=== PATIENT | male | born 2000 | race Caucasian/White ===

== ENCOUNTER 2024-05-22 18:38 | Inpatient (IN) | payer MEDICAID ==
[~2024-05-22] VITALS: Ht 175.3 cm; Wt 72.6 kg
[2024-05-22 23:35] LABS: BASOPHILS % (AUTO) 0.2 % (0-1); EOSINOPHILS % (AUTO) 0 % (0-6); HEMATOCRIT 41.9 % (42.0-52.0); HEMOGLOBIN 14.2 g/dl (14.0-17.9); LYMPHOCYTES # (AUTO) 0.7 X10'3 (1.1-4.8); LYMPHOCYTES % (AUTO) 4.7 % (21-51); MEAN CORPUSCULAR VOLUME 85.2 FL (78-98); MEAN PLATELET VOLUME 7.4 FL (7.4-10.4); MONOCYTES # (AUTO) 0.7 X10'3 (0-0.9); MONOCYTES % (AUTO) 4.7 % (2-12); NEUTROPHILS # (AUTO) 13.9 X10'3 (1.8-7.7); NEUTROPHILS % (AUTO) 90.4 % (42-75); PLATELET COUNT 230 X10'3 (140-440); RED BLOOD COUNT 4.92 X10'6 (4.70-6.10); RED CELL DISTRIBUTION WIDTH 13.5 % (11.5-14.5); WHITE BLOOD COUNT 15.4 X10'3 (4.5-11.0)
[2024-05-22 23:41] LABS: ANION GAP 12 (8-16); BLOOD UREA NITROGEN 9 MG/DL (7-18); CALCIUM 9.3 MG/DL (8.5-10.1); CHLORIDE 104 MMOL/L (99-107); GLUCOSE 119 MG/DL (70-104); POTASSIUM 3.5 MMOL/L (3.5-5.1); SODIUM 140 MMOL/L (135-145); TOTAL CARBON DIOXIDE 23.8 MMOL/L (24-32); eCRCL 127 ML/MIN; eGFR > 90 ML/MIN
[2024-05-23] VITALS (10 sets, daily range): BP systolic 110–122; BP diastolic 57–70; PULSE 56–88; RESP 13–16; TEMP 97.3–99.5; O2SAT 92–98
[2024-05-23] MEDS ORDERED: potassium Cl 40MEQ/1/2NS 520ml 520 ML IV PRN (00:15)
[2024-05-23] MEDS ORDERED: magnesium sulf-water 4G/100mL 100 ML IV PRN (00:15)
[2024-05-23] MEDS ORDERED: potassium Cl 20 mEq SR tablet PO PRN ×2 (00:15)
[2024-05-23] MEDS ORDERED: magnesium hydroxide 30ml (MOM) UD suspension PO PRN (00:15)
[2024-05-23] MEDS ORDERED: magnesium Cl slow-release 64mg tablet PO PRN (00:15)
[2024-05-23] MEDS ORDERED: magnesium sulf-water 2g/50mL 50 ML IV PRN (00:15)
[2024-05-23] MEDS ORDERED: azithromycin/NS 500mg/250ml 250 ML IV SCH (00:20)
[2024-05-23] MEDS: normal saline 1000ml 1,000 ML IV SCH (02:20)
[2024-05-23 02:26] LABS: MAGNESIUM 2.3 MG/DL (1.5-2.4); POTASSIUM 4.1 MMOL/L (3.5-5.1)
[2024-05-23] MEDS: ondansetron/PF 4mg/2ml inj IV PRN (02:36)
[2024-05-23] MEDS: ketorolac trometh 30MG/ML vial 30 MG/ML VIAL IV PRN (03:08)
[2024-05-23] MEDS: K and/or MAG REPLACEMENT MC SCH (08:00)
[2024-05-23] MEDS: pantoprazole 40 MG vial IV SCH (08:25)
[2024-05-23] MEDS: CefTRIAXone/D5W-Rocephin 1gm 50 ML IV SCH (08:25)
[2024-05-23 08:33] LABS: BILIRUBIN,URINE MODERATE (Neg); CLARITY,URINE SLIGHTLY CLOUDY (Clear); COLOR,URINE YELLOW (Yellow); GLUCOSE, URINE NEGATIVE (Neg); KETONES,URINE 15 mg/dl (Neg); LEUKOCYTE ESTERASE ,URINE NEGATIVE (Neg); NITRITES, URINE NEGATIVE (Neg); OCCULT BLOOD,URINE MODERATE (Neg); PROTEIN,URINE 100 mg/dl (Neg); UROBILINOGEN,URINE 0.2 E.U/dL (0.2-1.0)
[2024-05-23 08:44] LABS: SQUAMOUS EPITHELIAL CELL,UR FEW /LPF (FEW); UA COLLECTION TYPE FOLEY CATH
[2024-05-23 08:45] LABS: COARSE GRANULAR CAST 0-3 /LPF (NEGATIVE); MUCUS STRANDS MODERATE /LPF (Neg)
[2024-05-23 08:47] LABS: BACTERIA,URINE 1+ /HPF (Neg); RBC,URINE TNTC /HPF (0-2); TRANSITIONAL EPI CELLS,URINE FEW /HPF; WBC,URINE 20-30 /HPF (0-4)
[2024-05-23] MEDS: FLU VACC TS2024-25(6MOS UP)/PF 45 MCG/0.5 ML SYRINGE IMVAC ONE (15:54)
[2024-05-23] MEDS: normal saline 1000ml 1,000 ML IV ONE (16:09)
[2024-05-23] MEDS: diatr meglu/diatrizoate 30ml oral sol.-(3 dose) bottle PO SCH (21:44)
[2024-05-24] VITALS (21 sets, daily range): BP systolic 104–126; BP diastolic 53–80; PULSE 47–124; RESP 14–20; TEMP 97.6–98.5; O2SAT 93–100
[2024-05-24 05:04] LABS: EOSINOPHILS # (AUTO) 0.2 X10'3 (0-0.9); HEMOGLOBIN 11.4 g/dl (14.0-17.9); MEAN PLATELET VOLUME 7.4 FL (7.4-10.4); NEUTROPHILS # (AUTO) 4.2 X10'3 (1.8-7.7)
[2024-05-24 05:07] LABS: BASOPHILS # (AUTO) 0.1 X10'3 (0-0.2); BASOPHILS % (AUTO) 0.8 % (0-1); EOSINOPHILS % (AUTO) 2.8 % (0-6); HEMATOCRIT 33.4 % (42.0-52.0); LYMPHOCYTES # (AUTO) 1.9 X10'3 (1.1-4.8); LYMPHOCYTES % (AUTO) 27.4 % (21-51); MEAN CORPUSCULAR HEMOGLOBIN 29.3 PG (27.0-31.0); MEAN CORPUSCULAR HGB CONC 34.1 g/dL (33.0-36.5); MEAN CORPUSCULAR VOLUME 85.7 FL (78-98); MONOCYTES # (AUTO) 0.6 X10'3 (0-0.9); MONOCYTES % (AUTO) 8.9 % (2-12); NEUTROPHILS % (AUTO) 60.1 % (42-75); PLATELET COUNT 159 X10'3 (140-440); RED CELL DISTRIBUTION WIDTH 13.6 % (11.5-14.5)
[2024-05-24 05:29] LABS: ALANINE AMINOTRANSFERASE 16 U/L (12-78); ALBUMIN 2.8 G/DL (3.4-5.0); ALKALINE PHOSPHATASE 35 IU/L (46-116); ANION GAP 7 (8-16); ASPARTATE AMINO TRANSFERASE 14 U/L (10-37); BILIRUBIN,TOTAL 0.5 MG/DL (0.1-1.0); BLOOD UREA NITROGEN 18 MG/DL (7-18); BUN/CREATININE RATIO 25.4 (10.0-20.0); CALCIUM 8.2 MG/DL (8.5-10.1); CHLORIDE 112 MMOL/L (99-107); CREATININE 0.71 MG/DL (0.60-1.10); GLUCOSE 75 MG/DL (70-104); MAGNESIUM 1.9 MG/DL (1.5-2.4); POTASSIUM 3.6 MMOL/L (3.5-5.1); SODIUM 144 MMOL/L (135-145); TOTAL CARBON DIOXIDE 25.5 MMOL/L (24-32); TOTAL PROTEIN 5.7 G/DL (6.4-8.2); eCRCL 160 ML/MIN; eGFR > 90 ML/MIN
[2024-05-24] MEDS: dextrose 50%-water 50ml dispensing syringe IV ONE (08:02)
[2024-05-24] MEDS ORDERED: dextrose 50%-water 50ml dispensing syringe IV PRN (08:15)
[2024-05-24] MEDS ORDERED: DEXTROSE 15 GM of carb/4 tabs (each vial/BOTTLE has 4 tablets) PO PRN (08:15)
[2024-05-24] MEDS ORDERED: glucagon, human recombinant 1mg kit SUBCUT PRN (08:15)
[2024-05-24] MEDS ORDERED: iohexol 300mg/ml 100ml inj. ONE (11:11)
[2024-05-24] MEDS: dextrose 50%-water 50ml dispensing syringe IV PRN (15:02)
[2024-05-24 15:31] LABS: INR 1.1 INR; PROTHROMBIN TIME 11.2 SECONDS (9.0-12.0)
[2024-05-24] MEDS ORDERED: ringers solution, lacted 1,000 ML IV SCH (18:00)
[2024-05-24] MEDS ORDERED: meperidine/PF 25mg/ml syringe IV PRN ×2 (18:00)
[2024-05-24] MEDS ORDERED: ondansetron/PF 4mg/2ml inj IV PRN (18:00)
[2024-05-24] MEDS ORDERED: morphine 2 MG/ML inj. syringe IV PRN (18:00)
[2024-05-24] MEDS ORDERED: proCHLORperazine 10 MG/2 ml inj IV PRN (18:00)
[2024-05-24] MEDS ORDERED: sevoflurane 250ml liquid IH ONE (18:04)
[2024-05-24] MEDS ORDERED: fentaNYL /PF 50mcg/ml 5ml ampule ONE (18:08)
[2024-05-24] MEDS ORDERED: propofol inj 20 ML IV ONE (18:08)
[2024-05-24] MEDS ORDERED: midazolam 1 mg/ML 2ml injection ONE (18:08)
[2024-05-24] MEDS ORDERED: rocuronium 10mg/ml inj IV ONE (18:08)
[2024-05-24] MEDS ORDERED: ceFOXitin 1000 MG inj ONE ×2 (18:50)
[2024-05-24] MEDS: BUPIVAcaine 2.5mg/ml inj 50ml vial (contains preservative) ONE ×2 (19:52→21:51)
[2024-05-24] MEDS ORDERED: sugammadex 200mg/2ml injection IV ONE (20:17)
[2024-05-24] MEDS ORDERED: meperidine/PF 25mg/ml syringe ONE (20:27)
[2024-05-24] MEDS ORDERED: acetaminophen 1,000mg/100ml IV 100 ML IV ONE (20:28)
[2024-05-24] MEDS: morphine 4 MG/ML inj SYRINge IV PRN (21:02)
[2024-05-24] MEDS: meperidine/PF 25mg/ml syringe IV PRN (21:14)
[2024-05-24] MEDS: BUPIVACAINE liposomal/PF 13.3 MG/ML vial IM ONE (21:53)
[2024-05-24] MEDS: HYDROmorphone inj. 0.5 MG/0.5 ML DISP.SYRIN IV PRN (22:25)
[2024-05-25] VITALS (11 sets, daily range): BP systolic 98–120; BP diastolic 56–69; PULSE 48–104; RESP 16–18; TEMP 98.1–99.5; O2SAT 93–97
[2024-05-25 05:14] LABS: BASOPHILS % (AUTO) 0.2 % (0-1); EOSINOPHILS % (AUTO) 0.1 % (0-6); HEMATOCRIT 41.2 % (42.0-52.0); HEMOGLOBIN 13.8 g/dl (14.0-17.9); LYMPHOCYTES # (AUTO) 0.8 X10'3 (1.1-4.8); LYMPHOCYTES % (AUTO) 5.5 % (21-51); MEAN CORPUSCULAR HEMOGLOBIN 28.9 PG (27.0-31.0); MEAN CORPUSCULAR HGB CONC 33.5 g/dL (33.0-36.5); MEAN CORPUSCULAR VOLUME 86.3 FL (78-98); MEAN PLATELET VOLUME 7.9 FL (7.4-10.4); MONOCYTES # (AUTO) 0.8 X10'3 (0-0.9); MONOCYTES % (AUTO) 5.4 % (2-12); NEUTROPHILS # (AUTO) 13.1 X10'3 (1.8-7.7); NEUTROPHILS % (AUTO) 88.8 % (42-75); PLATELET COUNT 192 X10'3 (140-440); RED BLOOD COUNT 4.77 X10'6 (4.70-6.10); RED CELL DISTRIBUTION WIDTH 13.3 % (11.5-14.5); WHITE BLOOD COUNT 14.8 X10'3 (4.5-11.0)
[2024-05-25 05:21] LABS: ALANINE AMINOTRANSFERASE 40 U/L (12-78); ALBUMIN 2.7 G/DL (3.4-5.0); ALBUMIN/GLOBULIN RATIO 0.9 (1.1-1.5); ALKALINE PHOSPHATASE 36 IU/L (46-116); ANION GAP 5 (8-16); ASPARTATE AMINO TRANSFERASE 51 U/L (10-37); BLOOD UREA NITROGEN 3 MG/DL (7-18); BUN/CREATININE RATIO 5.4 (10.0-20.0); CHLORIDE 106 MMOL/L (99-107); CREATININE 0.56 MG/DL (0.60-1.10); GLUCOSE 97 MG/DL (70-104); MAGNESIUM 1.7 MG/DL (1.5-2.4); POTASSIUM 3.8 MMOL/L (3.5-5.1); SODIUM 138 MMOL/L (135-145); TOTAL CARBON DIOXIDE 26.6 MMOL/L (24-32); TOTAL PROTEIN 5.7 G/DL (6.4-8.2); eCRCL 203 ML/MIN; eGFR > 90 ML/MIN
[2024-05-25] MEDS: Chloraseptic (Phenol) Spray 177ml MM PRN (09:36)
[2024-05-25] MEDS: HYDROmorphone 1 mg/ml syringe IV ONE (12:19)
[2024-05-25] MEDS: HYDROmorphone 1 mg/ml syringe IV PRN (15:21)
[2024-05-25] MEDS: mag hydrox/Alum hydrox/simeth 30ml oral suspension PO PRN (20:10)
[2024-05-26 04:51] LABS: BASOPHILS % (AUTO) 0.4 % (0-1); EOSINOPHILS # (AUTO) 0.2 X10'3 (0-0.9); EOSINOPHILS % (AUTO) 1.9 % (0-6); HEMATOCRIT 35.3 % (42.0-52.0); LYMPHOCYTES # (AUTO) 1.8 X10'3 (1.1-4.8); LYMPHOCYTES % (AUTO) 19.2 % (21-51); MEAN CORPUSCULAR HEMOGLOBIN 28.7 PG (27.0-31.0); MEAN CORPUSCULAR HGB CONC 33.9 g/dL (33.0-36.5); MEAN CORPUSCULAR VOLUME 84.5 FL (78-98); MEAN PLATELET VOLUME 7.2 FL (7.4-10.4); MONOCYTES # (AUTO) 0.9 X10'3 (0-0.9); MONOCYTES % (AUTO) 9.7 % (2-12); NEUTROPHILS # (AUTO) 6.5 X10'3 (1.8-7.7); NEUTROPHILS % (AUTO) 68.8 % (42-75); PLATELET COUNT 174 X10'3 (140-440); RED BLOOD COUNT 4.18 X10'6 (4.70-6.10); RED CELL DISTRIBUTION WIDTH 13.3 % (11.5-14.5); WHITE BLOOD COUNT 9.4 X10'3 (4.5-11.0)
[2024-05-26 05:07] LABS: ALANINE AMINOTRANSFERASE 40 U/L (12-78); ALBUMIN 2.3 G/DL (3.4-5.0); ALBUMIN/GLOBULIN RATIO 0.8 (1.1-1.5); ALKALINE PHOSPHATASE 34 IU/L (46-116); ANION GAP 7 (8-16); ASPARTATE AMINO TRANSFERASE 56 U/L (10-37); BILIRUBIN,TOTAL 0.8 MG/DL (0.1-1.0); BLOOD UREA NITROGEN 6 MG/DL (7-18); BUN/CREATININE RATIO 9.7 (10.0-20.0); CALCIUM 7.9 MG/DL (8.5-10.1); CHLORIDE 107 MMOL/L (99-107); CREATININE 0.62 MG/DL (0.60-1.10); GLUCOSE 81 MG/DL (70-104); MAGNESIUM 2.1 MG/DL (1.5-2.4); POTASSIUM 3.5 MMOL/L (3.5-5.1); SODIUM 140 MMOL/L (135-145); TOTAL CARBON DIOXIDE 26.2 MMOL/L (24-32); TOTAL PROTEIN 5.2 G/DL (6.4-8.2); eCRCL 184 ML/MIN; eGFR > 90 ML/MIN
[2024-05-26 05:36] LABS: HEPATITIS C VIRUS ANTIBODY Non Reactive (Non Reactive)
[2024-05-26 06:00] VITALS: BP 115/64; PULSE 87; RESP 16; TEMP 98.7; O2SAT 98
[2024-05-26 08:02] VITALS: RESP 16; O2SAT 96
[2024-05-26 10:00] VITALS: BP 121/72; PULSE 78; RESP 15; TEMP 97.7; O2SAT 92
[2024-05-26 18:00] VITALS: BP 105/53; PULSE 58; RESP 16; TEMP 97.3; O2SAT 99
[2024-05-26 20:00] VITALS: RESP 16; O2SAT 98
[2024-05-26] MEDS ORDERED: metoclopramide 5 mg/ml inj IV PRN (20:10)
[2024-05-26] MEDS: metoclopramide 5 mg/ml inj IV PRN (20:30)
[2024-05-26] MEDS: enoxaparin 40mg/0.4ml syringe SUBCUT SCH (20:32)
[2024-05-26 22:00] VITALS: BP 108/64; PULSE 71; RESP 16; TEMP 98.4; O2SAT 98
[2024-05-27 05:19] LABS: ALANINE AMINOTRANSFERASE 33 U/L (12-78); ALBUMIN 2.4 G/DL (3.4-5.0); ALBUMIN/GLOBULIN RATIO 0.7 (1.1-1.5); ALKALINE PHOSPHATASE 36 IU/L (46-116); ANION GAP 6 (8-16); ASPARTATE AMINO TRANSFERASE 47 U/L (10-37); BILIRUBIN,TOTAL 0.6 MG/DL (0.1-1.0); BLOOD UREA NITROGEN 4 MG/DL (7-18); BUN/CREATININE RATIO 6.5 (10.0-20.0); CALCIUM 8.1 MG/DL (8.5-10.1); CHLORIDE 105 MMOL/L (99-107); CREATININE 0.62 MG/DL (0.60-1.10); GLUCOSE 74 MG/DL (70-104); MAGNESIUM 1.8 MG/DL (1.5-2.4); POTASSIUM 3.4 MMOL/L (3.5-5.1); SODIUM 137 MMOL/L (135-145); TOTAL PROTEIN 5.9 G/DL (6.4-8.2); eCRCL 184 ML/MIN; eGFR > 90 ML/MIN
[2024-05-27 05:27] LABS: BASOPHILS % (AUTO) 0.4 % (0-1); EOSINOPHILS # (AUTO) 0.1 X10'3 (0-0.9); EOSINOPHILS % (AUTO) 1.1 % (0-6); HEMATOCRIT 37.3 % (42.0-52.0); HEMOGLOBIN 12.7 g/dl (14.0-17.9); LYMPHOCYTES # (AUTO) 1.2 X10'3 (1.1-4.8); LYMPHOCYTES % (AUTO) 11.8 % (21-51); MEAN CORPUSCULAR HEMOGLOBIN 28.9 PG (27.0-31.0); MEAN CORPUSCULAR HGB CONC 34.1 g/dL (33.0-36.5); MEAN CORPUSCULAR VOLUME 84.9 FL (78-98); MEAN PLATELET VOLUME 8.2 FL (7.4-10.4); MONOCYTES # (AUTO) 0.6 X10'3 (0-0.9); MONOCYTES % (AUTO) 6.6 % (2-12); NEUTROPHILS # (AUTO) 7.9 X10'3 (1.8-7.7); NEUTROPHILS % (AUTO) 80.1 % (42-75); PLATELET COUNT 200 X10'3 (140-440); RED BLOOD COUNT 4.39 X10'6 (4.70-6.10); RED CELL DISTRIBUTION WIDTH 13.1 % (11.5-14.5); WHITE BLOOD COUNT 9.8 X10'3 (4.5-11.0)
[2024-05-27 06:00] VITALS: BP 117/52; PULSE 87; RESP 18; TEMP 98.9; O2SAT 96
[2024-05-27 08:15] VITALS: RESP 16; O2SAT 94
[2024-05-27 10:00] VITALS: BP 111/64; PULSE 72; RESP 15; TEMP 98.7; O2SAT 97
[2024-05-27] MEDS ORDERED: ringers solution, lacted 1,000 ML IV SCH (11:15)
[2024-05-27] MEDS: dextrose 5%-lactated ringers 1,000 ML IV SCH (12:32)
[2024-05-27] MEDS: LORazepam 2 mg/ml vial IV ONE (14:03)
[2024-05-27 18:00] VITALS: BP 116/71; PULSE 93; RESP 16; TEMP 97.7; O2SAT 96
[2024-05-27] MEDS ORDERED: magnesium Cl slow-release 64mg tablet PO PRN (18:00)
[2024-05-27] MEDS ORDERED: potassium Cl 20 mEq SR tablet PO PRN ×2 (18:00)
[2024-05-27] MEDS ORDERED: magnesium sulf-water 4G/100mL 100 ML IV PRN (18:00)
[2024-05-27] MEDS ORDERED: magnesium sulf-water 2g/50mL 50 ML IV PRN (18:00)
[2024-05-27 20:00] VITALS: RESP 16; O2SAT 96
[2024-05-27] MEDS: K and/or MAG REPLACEMENT MC SCH (20:00)
[2024-05-27] MEDS: potassium Cl 40MEQ/1/2NS 520ml 520 ML IV PRN (20:29)
[2024-05-27 22:00] VITALS: BP 112/61; PULSE 70; RESP 18; TEMP 98.5; O2SAT 96
[2024-05-28] VITALS (9 sets, daily range): BP systolic 101–127; BP diastolic 58–71; PULSE 65–107; RESP 16–20; TEMP 97.6–98.4; O2SAT 95–100
[2024-05-28] MEDS: piperacillin/tazo 4.5gm/100ml 100 ML IV SCH (00:56)
[2024-05-28 06:40] LABS: ALANINE AMINOTRANSFERASE 27 U/L (12-78); ALBUMIN 2.5 G/DL (3.4-5.0); ALBUMIN/GLOBULIN RATIO 0.7 (1.1-1.5); ALKALINE PHOSPHATASE 32 IU/L (46-116); ANION GAP 8 (8-16); ASPARTATE AMINO TRANSFERASE 30 U/L (10-37); BILIRUBIN,TOTAL 0.6 MG/DL (0.1-1.0); BLOOD UREA NITROGEN 2 MG/DL (7-18); BUN/CREATININE RATIO 2.9 (10.0-20.0); CALCIUM 8.3 MG/DL (8.5-10.1); CHLORIDE 105 MMOL/L (99-107); GLUCOSE 124 MG/DL (70-104); POTASSIUM 3.6 MMOL/L (3.5-5.1); SODIUM 139 MMOL/L (135-145); TOTAL CARBON DIOXIDE 26.4 MMOL/L (24-32); TOTAL PROTEIN 5.9 G/DL (6.4-8.2); eCRCL 163 ML/MIN; eGFR > 90 ML/MIN
[2024-05-28 06:48] LABS: BASOPHILS % (AUTO) 0.5 % (0-1); EOSINOPHILS # (AUTO) 0.2 X10'3 (0-0.9); EOSINOPHILS % (AUTO) 2.9 % (0-6); HEMATOCRIT 37.9 % (42.0-52.0); LYMPHOCYTES % (AUTO) 11.3 % (21-51); MEAN CORPUSCULAR HEMOGLOBIN 28.7 PG (27.0-31.0); MEAN CORPUSCULAR HGB CONC 34.2 g/dL (33.0-36.5); MEAN CORPUSCULAR VOLUME 83.7 FL (78-98); MEAN PLATELET VOLUME 7.9 FL (7.4-10.4); MONOCYTES # (AUTO) 0.7 X10'3 (0-0.9); MONOCYTES % (AUTO) 7.8 % (2-12); NEUTROPHILS # (AUTO) 6.6 X10'3 (1.8-7.7); NEUTROPHILS % (AUTO) 77.5 % (42-75); PLATELET COUNT 240 X10'3 (140-440); RED BLOOD COUNT 4.53 X10'6 (4.70-6.10); RED CELL DISTRIBUTION WIDTH 13.2 % (11.5-14.5); WHITE BLOOD COUNT 8.5 X10'3 (4.5-11.0)
[2024-05-28] MEDS: metoclopramide 5 mg/ml inj IV SCH (07:55)
[2024-05-28] MEDS ORDERED: levoFLOXACIN-Levaquin 750MG/D5 150 ML IV SCH (08:00)
[2024-05-28 09:35] LABS: MAGNESIUM 1.9 MG/DL (1.5-2.4)
[2024-05-28] MEDS: LORazepam 2 mg/ml vial IV ONE (12:53)
[2024-05-28] MEDS: methylnaltrexone br 12mg/0.6ml inj***SubQ only SQ ONE (15:35)
[2024-05-29 06:56] VITALS: BP 112/63; PULSE 53; RESP 20; TEMP 98.5; O2SAT 97
[2024-05-29 10:00] VITALS: BP 111/64; PULSE 65; RESP 20; TEMP 98; O2SAT 97
[2024-05-29] MEDS: diatr meglu/diatrizoate 30ml oral sol.-(3 dose) bottle PO SCH (11:20)
[2024-05-29 14:38] VITALS: RESP 18
[2024-05-29 18:00] VITALS: BP 108/67; PULSE 49; RESP 20; TEMP 97.5; O2SAT 99
[2024-05-29 20:00] VITALS: RESP 20
[2024-05-29 22:00] VITALS: BP 112/55; PULSE 47; RESP 12; TEMP 97.3; O2SAT 96
[2024-05-30 06:00] VITALS: BP 95/56; PULSE 43; RESP 12; TEMP 97.4; O2SAT 97
[2024-05-30 10:00] VITALS: BP 105/57; PULSE 53; RESP 16; TEMP 98.5; O2SAT 98
[2024-05-30] MEDS ORDERED: sodium phosphate inj. 15 MMOL in dextrose 5%-water 250 ML IV PRN (15:55)
[2024-05-30] MEDS ORDERED: magnesium Cl slow-release 64mg tablet PO PRN (15:55)
[2024-05-30] MEDS ORDERED: potassium Cl 20 mEq SR tablet PO PRN ×2 (15:55)
[2024-05-30] MEDS ORDERED: Neutra Phos packet PO PRN (15:55)
[2024-05-30] MEDS ORDERED: sodium phosphate inj. 30 MMOL in dextrose 5%-water 250 ML IV PRN (15:55)
[2024-05-30] MEDS ORDERED: Dextrose 10%-water IV solution 1,000 ML IV PRN (15:55)
[2024-05-30] MEDS ORDERED: magnesium sulf-water 4G/100mL 100 ML IV PRN (15:55)
[2024-05-30] MEDS ORDERED: magnesium sulf-water 2g/50mL 50 ML IV PRN (15:55)
[2024-05-30 17:17] LABS: ALANINE AMINOTRANSFERASE 106 U/L (12-78); ALBUMIN 2.5 G/DL (3.4-5.0); ALBUMIN/GLOBULIN RATIO 0.8 (1.1-1.5); ALKALINE PHOSPHATASE 39 IU/L (46-116); ANION GAP 3 (8-16); ASPARTATE AMINO TRANSFERASE 93 U/L (10-37); BILIRUBIN,TOTAL 0.7 MG/DL (0.1-1.0); BLOOD UREA NITROGEN 3 MG/DL (7-18); BUN/CREATININE RATIO 5.2 (10.0-20.0); CALCIUM 8.5 MG/DL (8.5-10.1); CHLORIDE 106 MMOL/L (99-107); CREATININE 0.58 MG/DL (0.60-1.10); GLUCOSE 105 MG/DL (70-104); PHOSPHORUS 3.2 MG/DL (2.3-4.5); SODIUM 141 MMOL/L (135-145); TOTAL CARBON DIOXIDE 32.4 MMOL/L (24-32); TOTAL PROTEIN 5.5 G/DL (6.4-8.2); TRIGLYCERIDES 64 MG/DL (20-135); eCRCL 196 ML/MIN; eGFR > 90 ML/MIN
[2024-05-30 17:27] LABS: POTASSIUM 2.7 MMOL/L (3.5-5.1)
[2024-05-30 18:00] VITALS: BP 113/70; PULSE 65; RESP 16; TEMP 97; O2SAT 100
[2024-05-30 20:00] VITALS: RESP 18
[2024-05-30] MEDS: K and/or MAG REPLACEMENT MC SCH (20:00)
[2024-05-30] MEDS: fat emulsion 20% inj. 100 ML IV SCH (20:55)
[2024-05-30] MEDS: MVI, adult No.4 with vit. K 10 ML in dextrose 5% water 500ml 500 ML IV SCH (20:55)
[2024-05-30] MEDS: ZINC/COPPER/MANGANESE/SELENIUM 1 ML, chromic chloride inj. 10 MCG in AA 5%/CALCIUM/LYTE... IV SCH (20:56)
[2024-05-30 22:00] VITALS: BP 114/62; PULSE 49; RESP 12; TEMP 97.5; O2SAT 96
[2024-05-30] MEDS: potassium Cl 40MEQ/1/2NS 520ml 520 ML IV PRN (22:35)
[2024-05-30] MEDS: normal saline 1000ml 1,000 ML IV SCH (22:46)
[2024-05-31] VITALS (7 sets, daily range): BP systolic 85–103; BP diastolic 52–60; PULSE 58–74; RESP 14–18; TEMP 98–98.5; O2SAT 94–99
[2024-05-31 11:05] LABS: ALANINE AMINOTRANSFERASE 137 U/L (12-78); ALBUMIN 2.5 G/DL (3.4-5.0); ALBUMIN/GLOBULIN RATIO 0.7 (1.1-1.5); ALKALINE PHOSPHATASE 47 IU/L (46-116); ANION GAP 4 (8-16); ASPARTATE AMINO TRANSFERASE 106 U/L (10-37); BILIRUBIN,TOTAL 0.7 MG/DL (0.1-1.0); BLOOD UREA NITROGEN 4 MG/DL (7-18); BUN/CREATININE RATIO 6.8 (10.0-20.0); CALCIUM 8.3 MG/DL (8.5-10.1); CHLORIDE 107 MMOL/L (99-107); CREATININE 0.59 MG/DL (0.60-1.10); GLUCOSE 130 MG/DL (70-104); MAGNESIUM 2.2 MG/DL (1.5-2.4); SODIUM 139 MMOL/L (135-145); TOTAL PROTEIN 5.9 G/DL (6.4-8.2); eCRCL 193 ML/MIN; eGFR > 90 ML/MIN
[2024-06-01 06:00] VITALS: BP 106/66; PULSE 100; RESP 14; TEMP 98.4; O2SAT 96
[2024-06-01 09:26] LABS: ALANINE AMINOTRANSFERASE 213 U/L (12-78); ALBUMIN 2.8 G/DL (3.4-5.0); ALBUMIN/GLOBULIN RATIO 0.7 (1.1-1.5); ALKALINE PHOSPHATASE 53 IU/L (46-116); ANION GAP 8 (8-16); ASPARTATE AMINO TRANSFERASE 146 U/L (10-37); BILIRUBIN,TOTAL 0.9 MG/DL (0.1-1.0); BLOOD UREA NITROGEN 10 MG/DL (7-18); BUN/CREATININE RATIO 16.9 (10.0-20.0); CALCIUM 8.6 MG/DL (8.5-10.1); CHLORIDE 105 MMOL/L (99-107); CREATININE 0.59 MG/DL (0.60-1.10); GLUCOSE 94 MG/DL (70-104); MAGNESIUM 2.3 MG/DL (1.5-2.4); PHOSPHORUS 3.6 MG/DL (2.3-4.5); PREALBUMIN 21.6 MG/DL (19-36); SODIUM 138 MMOL/L (135-145); TOTAL CARBON DIOXIDE 25.4 MMOL/L (24-32); TRIGLYCERIDES 53 MG/DL (20-135); eCRCL 193 ML/MIN; eGFR > 90 ML/MIN
[2024-06-01 10:00] VITALS: BP 110/64; PULSE 88; RESP 18; TEMP 98.5; O2SAT 96
[2024-06-01 18:00] VITALS: BP 105/62; PULSE 89; RESP 16; TEMP 97.1; O2SAT 95
[2024-06-01 20:00] VITALS: RESP 16; O2SAT 95
[2024-06-01 22:00] VITALS: BP 106/65; PULSE 60; RESP 20; TEMP 98.7; O2SAT 95
[2024-06-02 06:00] VITALS: BP 110/65; PULSE 78; RESP 19; TEMP 98.3; O2SAT 96
[2024-06-02 08:10] VITALS: RESP 16
[2024-06-02 10:00] VITALS: BP 104/64; PULSE 75; RESP 14; TEMP 98.1; O2SAT 96
[2024-06-02] MEDS: metoclopramide 5 mg/ml inj IV ONE (10:54)
[2024-06-02] MEDS: methylnaltrexone br 12mg/0.6ml inj***SubQ only SQ SCH (10:54)
[2024-06-02 18:00] VITALS: BP 97/52; PULSE 82; RESP 15; TEMP 98.3; O2SAT 97
[2024-06-02 20:00] VITALS: RESP 15; O2SAT 97
[2024-06-02 22:00] VITALS: BP 106/66; PULSE 74; RESP 15; TEMP 98.2; O2SAT 97
[2024-06-03 06:00] VITALS: BP 105/61; PULSE 78; RESP 18; TEMP 98.1; O2SAT 96
[2024-06-03 07:30] VITALS: RESP 16
[2024-06-03 10:00] VITALS: BP 102/70; PULSE 83; RESP 15; TEMP 98.7; O2SAT 97
[2024-06-03] MEDS ORDERED: metoclopramide 5 mg/ml inj IV PRN (15:05)
[2024-06-03] MEDS: metoclopramide 5 mg/ml inj IV SCH (15:43)
[2024-06-03 18:00] VITALS: BP 110/74; PULSE 85; RESP 20; TEMP 97.8; O2SAT 98
[2024-06-03 20:00] VITALS: RESP 20; O2SAT 98
[2024-06-03 22:00] VITALS: BP 108/70; PULSE 65; RESP 16; TEMP 97.5; O2SAT 96
[2024-06-04 06:00] VITALS: BP 104/67; PULSE 79; RESP 20; TEMP 97.4; O2SAT 97
[2024-06-04 08:00] VITALS: RESP 16
[2024-06-04 09:29] LABS: ALANINE AMINOTRANSFERASE 212 U/L (12-78); ALBUMIN/GLOBULIN RATIO 0.7 (1.1-1.5); ALKALINE PHOSPHATASE 84 IU/L (46-116); ANION GAP 6 (8-16); ASPARTATE AMINO TRANSFERASE 79 U/L (10-37); BILIRUBIN,TOTAL 0.6 MG/DL (0.1-1.0); BLOOD UREA NITROGEN 13 MG/DL (7-18); BUN/CREATININE RATIO 19.7 (10.0-20.0); CALCIUM 8.9 MG/DL (8.5-10.1); CHLORIDE 101 MMOL/L (99-107); CREATININE 0.66 MG/DL (0.60-1.10); GLUCOSE 92 MG/DL (70-104); MAGNESIUM 2.3 MG/DL (1.5-2.4); PHOSPHORUS 3.6 MG/DL (2.3-4.5); POTASSIUM 4.1 MMOL/L (3.5-5.1); SODIUM 135 MMOL/L (135-145); TOTAL CARBON DIOXIDE 28.1 MMOL/L (24-32); TOTAL PROTEIN 7.2 G/DL (6.4-8.2); eCRCL 173 ML/MIN; eGFR > 90 ML/MIN
[2024-06-04 10:00] VITALS: BP 110/73; PULSE 59; RESP 16; TEMP 98.8; O2SAT 98
[2024-06-04 18:00] VITALS: BP 109/59; PULSE 66; RESP 15; TEMP 98.2; O2SAT 97
[2024-06-04 20:00] VITALS: RESP 16; O2SAT 97
[2024-06-04 22:00] VITALS: BP 97/45; PULSE 69; RESP 16; TEMP 97.8; O2SAT 96
[2024-06-05 06:55] LABS: ALANINE AMINOTRANSFERASE 171 U/L (12-78); ALBUMIN 2.8 G/DL (3.4-5.0); ALBUMIN/GLOBULIN RATIO 0.7 (1.1-1.5); ALKALINE PHOSPHATASE 77 IU/L (46-116); ANION GAP 5 (8-16); ASPARTATE AMINO TRANSFERASE 55 U/L (10-37); BILIRUBIN,TOTAL 0.5 MG/DL (0.1-1.0); BLOOD UREA NITROGEN 13 MG/DL (7-18); BUN/CREATININE RATIO 19.7 (10.0-20.0); CALCIUM 8.6 MG/DL (8.5-10.1); CHLORIDE 102 MMOL/L (99-107); CREATININE 0.66 MG/DL (0.60-1.10); GLUCOSE 103 MG/DL (70-104); MAGNESIUM 2.3 MG/DL (1.5-2.4); PHOSPHORUS 3.8 MG/DL (2.3-4.5); POTASSIUM 4.1 MMOL/L (3.5-5.1); PREALBUMIN 24.4 MG/DL (19-36); SODIUM 136 MMOL/L (135-145); TOTAL CARBON DIOXIDE 28.6 MMOL/L (24-32); TOTAL PROTEIN 6.8 G/DL (6.4-8.2); TRIGLYCERIDES 69 MG/DL (20-135); eCRCL 173 ML/MIN; eGFR > 90 ML/MIN
[2024-06-05 07:13] VITALS: BP 94/56; PULSE 68; RESP 18; TEMP 98.2; O2SAT 98
[2024-06-05 08:00] VITALS: RESP 16
[2024-06-05 10:06] VITALS: RESP 18; O2SAT 98
[2024-06-05 17:15] VITALS: BP 93/60; PULSE 73; TEMP 98.4; O2SAT 97
[2024-06-05 20:00] VITALS: BP 102/61; PULSE 85; RESP 16; RESP 18; TEMP 98.9; O2SAT 97; O2SAT 99
[2024-06-05] MEDS ORDERED: magnesium hydroxide 30ml (MOM) UD suspension PO SCH (20:00)
[2024-06-05] MEDS: magnesium hydroxide 30ml (MOM) UD suspension PO SCH (20:23)
[2024-06-06 00:46] VITALS: BP 97/48; PULSE 47; RESP 16; TEMP 97.6; O2SAT 97
[2024-06-06 03:48] LABS: UREA NITROGEN 24HR,URINE 15.3 GM/24HR (7-20)
[2024-06-06 06:34] VITALS: BP 93/55; PULSE 73; RESP 16; TEMP 97.1; O2SAT 95
[2024-06-06 08:00] VITALS: RESP 16; O2SAT 95
[2024-06-06 10:27] LABS: BASOPHILS # (AUTO) 0.1 X10'3 (0-0.2); BASOPHILS % (AUTO) 1.5 % (0-1); EOSINOPHILS # (AUTO) 0.4 X10'3 (0-0.9); EOSINOPHILS % (AUTO) 5.4 % (0-6); HEMATOCRIT 38.4 % (42.0-52.0); HEMOGLOBIN 12.8 g/dl (14.0-17.9); LYMPHOCYTES # (AUTO) 1.8 X10'3 (1.1-4.8); LYMPHOCYTES % (AUTO) 26.2 % (21-51); MEAN CORPUSCULAR HEMOGLOBIN 28.5 PG (27.0-31.0); MEAN CORPUSCULAR HGB CONC 33.4 g/dL (33.0-36.5); MEAN CORPUSCULAR VOLUME 85.5 FL (78-98); MEAN PLATELET VOLUME 7.4 FL (7.4-10.4); MONOCYTES # (AUTO) 0.7 X10'3 (0-0.9); MONOCYTES % (AUTO) 10.9 % (2-12); NEUTROPHILS # (AUTO) 3.8 X10'3 (1.8-7.7); PLATELET COUNT 254 X10'3 (140-440); RED BLOOD COUNT 4.49 X10'6 (4.70-6.10); RED CELL DISTRIBUTION WIDTH 13.1 % (11.5-14.5); WHITE BLOOD COUNT 6.8 X10'3 (4.5-11.0)
[2024-06-06 11:30] VITALS: BP 100/62; PULSE 78; RESP 16; TEMP 98.3; O2SAT 96
[2024-06-06] MEDS: lactose-reduced food (Ensure Enlive) - 237ml bottle PO SCH (13:00)
[2024-06-06 20:00] VITALS: BP 93/56; PULSE 73; RESP 16; TEMP 98.2; O2SAT 97
[2024-06-06 20:30] VITALS: RESP 16; O2SAT 97
[2024-06-07] VITALS (7 sets, daily range): BP systolic 92–109; BP diastolic 47–68; PULSE 95–107; RESP 16–18; TEMP 98.2–99.4; O2SAT 95–98
[2024-06-07 10:51] LABS: BASOPHILS # (AUTO) 0.1 X10'3 (0-0.2); BASOPHILS % (AUTO) 0.5 % (0-1); EOSINOPHILS # (AUTO) 0.2 X10'3 (0-0.9); HEMATOCRIT 37.9 % (42.0-52.0); HEMOGLOBIN 12.6 g/dl (14.0-17.9); LYMPHOCYTES # (AUTO) 1.2 X10'3 (1.1-4.8); LYMPHOCYTES % (AUTO) 7.4 % (21-51); MEAN CORPUSCULAR HEMOGLOBIN 28.1 PG (27.0-31.0); MEAN CORPUSCULAR HGB CONC 33.2 g/dL (33.0-36.5); MEAN CORPUSCULAR VOLUME 84.6 FL (78-98); MEAN PLATELET VOLUME 7.3 FL (7.4-10.4); MONOCYTES # (AUTO) 1.5 X10'3 (0-0.9); NEUTROPHILS # (AUTO) 13.7 X10'3 (1.8-7.7); NEUTROPHILS % (AUTO) 82.1 % (42-75); PLATELET COUNT 245 X10'3 (140-440); RED BLOOD COUNT 4.48 X10'6 (4.70-6.10); RED CELL DISTRIBUTION WIDTH 13.1 % (11.5-14.5); WHITE BLOOD COUNT 16.6 X10'3 (4.5-11.0)
[2024-06-07 11:04] LABS: ALANINE AMINOTRANSFERASE 89 U/L (12-78); ALBUMIN 2.8 G/DL (3.4-5.0); ALBUMIN/GLOBULIN RATIO 0.7 (1.1-1.5); ALKALINE PHOSPHATASE 73 IU/L (46-116); ANION GAP 5 (8-16); ASPARTATE AMINO TRANSFERASE 29 U/L (10-37); BILIRUBIN,TOTAL 0.6 MG/DL (0.1-1.0); BLOOD UREA NITROGEN 9 MG/DL (7-18); CALCIUM 8.4 MG/DL (8.5-10.1); CHLORIDE 100 MMOL/L (99-107); CREATININE 0.82 MG/DL (0.60-1.10); GLUCOSE 121 MG/DL (70-104); POTASSIUM 3.7 MMOL/L (3.5-5.1); SODIUM 134 MMOL/L (135-145); TOTAL CARBON DIOXIDE 28.9 MMOL/L (24-32); TOTAL PROTEIN 6.6 G/DL (6.4-8.2); eCRCL 139 ML/MIN; eGFR > 90 ML/MIN
[2024-06-08 04:16] LABS: BASOPHILS # (AUTO) 0.1 X10'3 (0-0.2); BASOPHILS % (AUTO) 0.3 % (0-1); EOSINOPHILS # (AUTO) 0.1 X10'3 (0-0.9); EOSINOPHILS % (AUTO) 0.9 % (0-6); HEMATOCRIT 36.4 % (42.0-52.0); HEMOGLOBIN 12.1 g/dl (14.0-17.9); LYMPHOCYTES # (AUTO) 1.9 X10'3 (1.1-4.8); LYMPHOCYTES % (AUTO) 11.8 % (21-51); MEAN CORPUSCULAR HEMOGLOBIN 28.4 PG (27.0-31.0); MEAN CORPUSCULAR HGB CONC 33.3 g/dL (33.0-36.5); MEAN CORPUSCULAR VOLUME 85.2 FL (78-98); MEAN PLATELET VOLUME 7.7 FL (7.4-10.4); MONOCYTES # (AUTO) 1.9 X10'3 (0-0.9); MONOCYTES % (AUTO) 12.1 % (2-12); NEUTROPHILS # (AUTO) 11.9 X10'3 (1.8-7.7); NEUTROPHILS % (AUTO) 74.9 % (42-75); PLATELET COUNT 231 X10'3 (140-440); RED BLOOD COUNT 4.27 X10'6 (4.70-6.10); RED CELL DISTRIBUTION WIDTH 13.1 % (11.5-14.5); WHITE BLOOD COUNT 15.9 X10'3 (4.5-11.0)
[2024-06-08 04:29] LABS: ALANINE AMINOTRANSFERASE 83 U/L (12-78); ALBUMIN 2.7 G/DL (3.4-5.0); ALBUMIN/GLOBULIN RATIO 0.7 (1.1-1.5); ALKALINE PHOSPHATASE 82 IU/L (46-116); ANION GAP 4 (8-16); ASPARTATE AMINO TRANSFERASE 37 U/L (10-37); BILIRUBIN,TOTAL 0.4 MG/DL (0.1-1.0); BLOOD UREA NITROGEN 11 MG/DL (7-18); BUN/CREATININE RATIO 12.4 (10.0-20.0); CALCIUM 8.2 MG/DL (8.5-10.1); CHLORIDE 99 MMOL/L (99-107); CREATININE 0.89 MG/DL (0.60-1.10); GLUCOSE 103 MG/DL (70-104); MAGNESIUM 1.9 MG/DL (1.5-2.4); PHOSPHORUS 3.9 MG/DL (2.3-4.5); PREALBUMIN 20.5 MG/DL (19-36); SODIUM 134 MMOL/L (135-145); TOTAL CARBON DIOXIDE 30.6 MMOL/L (24-32); TOTAL PROTEIN 6.8 G/DL (6.4-8.2); TRIGLYCERIDES 64 MG/DL (20-135); eCRCL 128 ML/MIN; eGFR > 90 ML/MIN
[2024-06-08 06:00] VITALS: BP 104/58; PULSE 89; RESP 15; TEMP 98.3; O2SAT 96
[2024-06-08 08:25] VITALS: RESP 16
[2024-06-08 09:13] LABS: BILIRUBIN,URINE NEGATIVE (Neg); CLARITY,URINE SLIGHTLY CLOUDY (Clear); COLOR,URINE YELLOW (Yellow); GLUCOSE, URINE NEGATIVE (Neg); KETONES,URINE NEGATIVE (Neg); LEUKOCYTE ESTERASE ,URINE NEGATIVE (Neg); NITRITES, URINE NEGATIVE (Neg); OCCULT BLOOD,URINE NEGATIVE (Neg); PROTEIN,URINE NEGATIVE (Neg); UROBILINOGEN,URINE 0.2 E.U/dL (0.2-1.0)
[2024-06-08 09:16] LABS: UA COLLECTION TYPE VOIDED
[2024-06-08 09:25] LABS: BACTERIA,URINE NONE SEEN /HPF (Neg); RBC,URINE NONE SEEN /HPF (0-2); SQUAMOUS EPITHELIAL CELL,UR NONE SEEN /LPF (FEW); WBC,URINE 0-4 /HPF (0-4)
[2024-06-08 10:00] VITALS: BP 90/43; PULSE 91; RESP 17; TEMP 97.5; O2SAT 98
[2024-06-08] MEDS ORDERED: POLY17PO10 PO (10:36)
[2024-06-08 15:26] LABS: BASOPHILS # (AUTO) 0.1 X10'3 (0-0.2); BASOPHILS % (AUTO) 0.8 % (0-1); EOSINOPHILS # (AUTO) 0.2 X10'3 (0-0.9); EOSINOPHILS % (AUTO) 1.6 % (0-6); HEMATOCRIT 33.4 % (42.0-52.0); HEMOGLOBIN 11.2 g/dl (14.0-17.9); LYMPHOCYTES # (AUTO) 1.8 X10'3 (1.1-4.8); LYMPHOCYTES % (AUTO) 12.9 % (21-51); MEAN CORPUSCULAR HEMOGLOBIN 28.4 PG (27.0-31.0); MEAN CORPUSCULAR HGB CONC 33.6 g/dL (33.0-36.5); MEAN CORPUSCULAR VOLUME 84.4 FL (78-98); MEAN PLATELET VOLUME 7.2 FL (7.4-10.4); MONOCYTES # (AUTO) 1.6 X10'3 (0-0.9); MONOCYTES % (AUTO) 11.9 % (2-12); NEUTROPHILS # (AUTO) 10.1 X10'3 (1.8-7.7); NEUTROPHILS % (AUTO) 72.8 % (42-75); PLATELET COUNT 227 X10'3 (140-440); RED BLOOD COUNT 3.96 X10'6 (4.70-6.10); RED CELL DISTRIBUTION WIDTH 13.1 % (11.5-14.5); WHITE BLOOD COUNT 13.9 X10'3 (4.5-11.0)
[2024-06-08 18:00] VITALS: BP 91/52; PULSE 99; RESP 17; TEMP 97.9; O2SAT 96
[2024-06-08 20:00] VITALS: RESP 17; O2SAT 96
[2024-06-08] MEDS: diatr meglu/diatrizoate 30ml oral sol.-(3 dose) bottle PO SCH (20:54)
[2024-06-08 22:00] VITALS: BP 97/61; PULSE 89; RESP 18; TEMP 98.3; O2SAT 96
[2024-06-09 06:17] LABS: BASOPHILS # (AUTO) 0.1 X10'3 (0-0.2); BASOPHILS % (AUTO) 0.6 % (0-1); EOSINOPHILS # (AUTO) 0.2 X10'3 (0-0.9); EOSINOPHILS % (AUTO) 1.6 % (0-6); HEMATOCRIT 33.4 % (42.0-52.0); HEMOGLOBIN 11.1 g/dl (14.0-17.9); LYMPHOCYTES # (AUTO) 1.7 X10'3 (1.1-4.8); LYMPHOCYTES % (AUTO) 12.6 % (21-51); MEAN CORPUSCULAR HEMOGLOBIN 28.2 PG (27.0-31.0); MEAN CORPUSCULAR HGB CONC 33.3 g/dL (33.0-36.5); MEAN CORPUSCULAR VOLUME 84.6 FL (78-98); MEAN PLATELET VOLUME 7.6 FL (7.4-10.4); MONOCYTES # (AUTO) 1.6 X10'3 (0-0.9); MONOCYTES % (AUTO) 11.7 % (2-12); NEUTROPHILS # (AUTO) 9.7 X10'3 (1.8-7.7); NEUTROPHILS % (AUTO) 73.5 % (42-75); PLATELET COUNT 219 X10'3 (140-440); RED BLOOD COUNT 3.95 X10'6 (4.70-6.10); RED CELL DISTRIBUTION WIDTH 13.3 % (11.5-14.5); WHITE BLOOD COUNT 13.2 X10'3 (4.5-11.0)
[2024-06-09 06:54] VITALS: BP 95/57; PULSE 86; RESP 20; TEMP 99.5; O2SAT 97
[2024-06-09 07:30] VITALS: RESP 20; O2SAT 97
[2024-06-09 11:00] VITALS: BP 107/57; PULSE 83; RESP 18; TEMP 99; O2SAT 95
[2024-06-09] MEDS ORDERED: iohexol 300mg/ml 100ml inj. ONE (11:18)
[2024-06-09] MEDS: piperacillin/tazo 4.5gm/100ml 100 ML IV SCH (16:35)
[2024-06-09 18:00] VITALS: BP 90/49; PULSE 85; RESP 18; TEMP 98.8; O2SAT 95
[2024-06-09 20:00] VITALS: RESP 18; O2SAT 97
[2024-06-09 22:00] VITALS: BP 98/56; PULSE 89; RESP 16; TEMP 98.6; O2SAT 98
[2024-06-10 05:58] LABS: BASOPHILS # (AUTO) 0.1 X10'3 (0-0.2); BASOPHILS % (AUTO) 0.8 % (0-1); EOSINOPHILS # (AUTO) 0.3 X10'3 (0-0.9); HEMATOCRIT 31.5 % (42.0-52.0); HEMOGLOBIN 10.8 g/dl (14.0-17.9); LYMPHOCYTES # (AUTO) 1.5 X10'3 (1.1-4.8); LYMPHOCYTES % (AUTO) 10.9 % (21-51); MEAN CORPUSCULAR HEMOGLOBIN 28.9 PG (27.0-31.0); MEAN CORPUSCULAR HGB CONC 34.1 g/dL (33.0-36.5); MEAN CORPUSCULAR VOLUME 84.6 FL (78-98); MEAN PLATELET VOLUME 8.3 FL (7.4-10.4); MONOCYTES # (AUTO) 1.7 X10'3 (0-0.9); MONOCYTES % (AUTO) 12.9 % (2-12); NEUTROPHILS # (AUTO) 9.8 X10'3 (1.8-7.7); NEUTROPHILS % (AUTO) 73.4 % (42-75); PLATELET COUNT 230 X10'3 (140-440); RED BLOOD COUNT 3.72 X10'6 (4.70-6.10); RED CELL DISTRIBUTION WIDTH 12.8 % (11.5-14.5); WHITE BLOOD COUNT 13.4 X10'3 (4.5-11.0)
[2024-06-10 06:00] VITALS: BP 93/57; PULSE 85; RESP 16; TEMP 98.6; O2SAT 97
[2024-06-10 08:00] VITALS: RESP 18; O2SAT 97
[2024-06-10 10:00] VITALS: BP 106/61; PULSE 86; RESP 18; TEMP 98.7; O2SAT 99
[2024-06-10] MEDS: diatr meglu/diatrizoate 30ml oral sol.-(3 dose) bottle PO SCH (14:51)
[2024-06-10] MEDS: dextrose 5%-lactated ringers 1,000 ML IV SCH (14:53)
[2024-06-10] MEDS: morphine 2 MG/ML inj. syringe IV PRN (15:41)
[2024-06-10] MEDS ORDERED: iohexol 300mg/ml 100ml inj. ONE (16:51)
[2024-06-10 18:00] VITALS: BP 108/64; PULSE 57; RESP 15; TEMP 98.7; O2SAT 99
[2024-06-10 19:36] LABS: ALANINE AMINOTRANSFERASE 50 U/L (12-78); ALBUMIN 2.5 G/DL (3.4-5.0); ALBUMIN/GLOBULIN RATIO 0.5 (1.1-1.5); ALKALINE PHOSPHATASE 70 IU/L (46-116); ANION GAP 6 (8-16); ASPARTATE AMINO TRANSFERASE 16 U/L (10-37); BILIRUBIN,TOTAL 0.4 MG/DL (0.1-1.0); BLOOD UREA NITROGEN 6 MG/DL (7-18); BUN/CREATININE RATIO 7.5 (10.0-20.0); CALCIUM 8.9 MG/DL (8.5-10.1); CHLORIDE 101 MMOL/L (99-107); GLUCOSE 111 MG/DL (70-104); SODIUM 136 MMOL/L (135-145); TOTAL CARBON DIOXIDE 28.8 MMOL/L (24-32); TOTAL PROTEIN 7.1 G/DL (6.4-8.2); eCRCL 142 ML/MIN; eGFR > 90 ML/MIN
[2024-06-10 20:00] VITALS: RESP 15; O2SAT 99
[2024-06-10 22:00] VITALS: BP 99/55; PULSE 74; RESP 15; TEMP 97.8; O2SAT 97
[2024-06-10] MEDS: HYDROcodone/acetaminophen 5mg/325mg tablet PO PRN (22:35)
[2024-06-11 06:00] VITALS: BP 112/60; PULSE 88; RESP 16; TEMP 98.8; O2SAT 97
[2024-06-11 08:00] VITALS: RESP 18; O2SAT 95
[2024-06-11 08:59] LABS: ALANINE AMINOTRANSFERASE 43 U/L (12-78); ALBUMIN 2.4 G/DL (3.4-5.0); ALBUMIN/GLOBULIN RATIO 0.5 (1.1-1.5); ALKALINE PHOSPHATASE 63 IU/L (46-116); ANION GAP 5 (8-16); ASPARTATE AMINO TRANSFERASE 19 U/L (10-37); BILIRUBIN,TOTAL 0.4 MG/DL (0.1-1.0); BLOOD UREA NITROGEN 6 MG/DL (7-18); BUN/CREATININE RATIO 7.5 (10.0-20.0); CALCIUM 8.5 MG/DL (8.5-10.1); CHLORIDE 103 MMOL/L (99-107); GLUCOSE 116 MG/DL (70-104); POTASSIUM 3.6 MMOL/L (3.5-5.1); SODIUM 138 MMOL/L (135-145); TOTAL PROTEIN 6.8 G/DL (6.4-8.2); eCRCL 142 ML/MIN; eGFR > 90 ML/MIN
[2024-06-11 09:03] LABS: BASOPHILS # (AUTO) 0.1 X10'3 (0-0.2); BASOPHILS % (AUTO) 0.4 % (0-1); EOSINOPHILS # (AUTO) 0.1 X10'3 (0-0.9); EOSINOPHILS % (AUTO) 1.1 % (0-6); HEMATOCRIT 32.9 % (42.0-52.0); HEMOGLOBIN 10.9 g/dl (14.0-17.9); LYMPHOCYTES # (AUTO) 0.9 X10'3 (1.1-4.8); LYMPHOCYTES % (AUTO) 7.5 % (21-51); MEAN CORPUSCULAR HEMOGLOBIN 28.3 PG (27.0-31.0); MEAN CORPUSCULAR HGB CONC 33.1 g/dL (33.0-36.5); MEAN CORPUSCULAR VOLUME 85.3 FL (78-98); MEAN PLATELET VOLUME 7.5 FL (7.4-10.4); MONOCYTES # (AUTO) 1.2 X10'3 (0-0.9); MONOCYTES % (AUTO) 10.3 % (2-12); NEUTROPHILS # (AUTO) 9.8 X10'3 (1.8-7.7); NEUTROPHILS % (AUTO) 80.7 % (42-75); PLATELET COUNT 245 X10'3 (140-440); RED BLOOD COUNT 3.85 X10'6 (4.70-6.10); WHITE BLOOD COUNT 12.1 X10'3 (4.5-11.0)
[2024-06-11 11:00] VITALS: BP 88/50; PULSE 80; RESP 16; TEMP 99.6; O2SAT 95
[2024-06-11] MEDS: proCHLORperazine 10 MG/2 ml inj IV ONE (11:25)
[2024-06-11] MEDS ORDERED: Dextrose 10%-water IV solution 1,000 ML IV PRN (14:35)
[2024-06-11 18:00] VITALS: BP 95/53; PULSE 82; RESP 16; TEMP 100; O2SAT 97
[2024-06-11] MEDS: MVI, adult No.4 with vit. K 10 ML in dextrose 5% water 500ml 500 ML IV SCH (20:09)
[2024-06-11] MEDS: fat emulsion 20% inj. 100 ML IV SCH (20:09)
[2024-06-11] MEDS: ZINC/COPPER/MANGANESE/SELENIUM 1 ML, chromic chloride inj. 10 MCG in AA 5%/CALCIUM/LYTE... IV SCH (20:10)
[2024-06-11 20:35] VITALS: BP 102/60; PULSE 81; RESP 20; TEMP 98.5; O2SAT 99
[2024-06-11] MEDS: pantoprazole 40 MG vial IV SCH (21:13)
[2024-06-11] MEDS: diatr meglu/diatrizoate 30ml oral sol.-(3 dose) bottle PO SCH (21:13)
[2024-06-11] MEDS ORDERED: diatr meglu/diatrizoate 30ml oral sol.-(3 dose) bottle ONE (23:24)
[2024-06-11] MEDS ORDERED: iohexol 300mg/ml 100ml inj. ONE (23:24)
[2024-06-12] VITALS (7 sets, daily range): BP systolic 91–102; BP diastolic 48–58; PULSE 68–86; RESP 16–20; TEMP 98–98.7; O2SAT 96–100
[2024-06-12] MEDS: piperacillin/tazo 3.375gm/50ml 50 ML IV SCH (00:31)
[2024-06-12 06:02] LABS: BASOPHILS % (AUTO) 0.3 % (0-1); EOSINOPHILS # (AUTO) 0.2 X10'3 (0-0.9); EOSINOPHILS % (AUTO) 1.7 % (0-6); HEMATOCRIT 29.7 % (42.0-52.0); LYMPHOCYTES # (AUTO) 1.5 X10'3 (1.1-4.8); LYMPHOCYTES % (AUTO) 11.1 % (21-51); MEAN CORPUSCULAR HEMOGLOBIN 28.3 PG (27.0-31.0); MEAN CORPUSCULAR HGB CONC 33.6 g/dL (33.0-36.5); MEAN CORPUSCULAR VOLUME 84.2 FL (78-98); MEAN PLATELET VOLUME 7.3 FL (7.4-10.4); MONOCYTES # (AUTO) 1.7 X10'3 (0-0.9); NEUTROPHILS # (AUTO) 9.8 X10'3 (1.8-7.7); NEUTROPHILS % (AUTO) 73.9 % (42-75); PLATELET COUNT 241 X10'3 (140-440); RED BLOOD COUNT 3.53 X10'6 (4.70-6.10); RED CELL DISTRIBUTION WIDTH 12.8 % (11.5-14.5); WHITE BLOOD COUNT 13.3 X10'3 (4.5-11.0)
[2024-06-12 06:07] LABS: ALANINE AMINOTRANSFERASE 32 U/L (12-78); ALBUMIN 2.1 G/DL (3.4-5.0); ALBUMIN/GLOBULIN RATIO 0.5 (1.1-1.5); ALKALINE PHOSPHATASE 55 IU/L (46-116); ANION GAP 5 (8-16); ASPARTATE AMINO TRANSFERASE 13 U/L (10-37); BILIRUBIN,TOTAL 0.5 MG/DL (0.1-1.0); BLOOD UREA NITROGEN 6 MG/DL (7-18); CALCIUM 8.3 MG/DL (8.5-10.1); CHLORIDE 101 MMOL/L (99-107); CREATININE 0.75 MG/DL (0.60-1.10); GLUCOSE 122 MG/DL (70-104); LIPASE 48 U/L (16-77); MAGNESIUM 2.1 MG/DL (1.5-2.4); POTASSIUM 3.5 MMOL/L (3.5-5.1); SODIUM 134 MMOL/L (135-145); TOTAL CARBON DIOXIDE 28.1 MMOL/L (24-32); TOTAL PROTEIN 6.2 G/DL (6.4-8.2); TRIGLYCERIDES 62 MG/DL (20-135); eCRCL 152 ML/MIN; eGFR > 90 ML/MIN
[2024-06-12] MEDS ORDERED: pantoprazole 40MG/NS 100ML BAG 100 ML IV SCH (08:00)
[2024-06-12] MEDS: MESSAGE TO NURSING IV ONE (09:03)
[2024-06-12 22:26] LABS: H PYLORI ANTIBODY NEGATIVE (Neg)
[2024-06-13] VITALS (24 sets, daily range): BP systolic 91–112; BP diastolic 44–72; PULSE 54–79; RESP 12–24; TEMP 97.2–98.7; O2SAT 96–99
[2024-06-13 07:15] LABS: BASOPHILS # (AUTO) 0.1 X10'3 (0-0.2); BASOPHILS % (AUTO) 0.8 % (0-1); EOSINOPHILS # (AUTO) 0.5 X10'3 (0-0.9); HEMOGLOBIN 9.8 g/dl (14.0-17.9); LYMPHOCYTES # (AUTO) 1.4 X10'3 (1.1-4.8); LYMPHOCYTES % (AUTO) 15.7 % (21-51); MEAN CORPUSCULAR HEMOGLOBIN 28.8 PG (27.0-31.0); MEAN CORPUSCULAR HGB CONC 33.9 g/dL (33.0-36.5); MEAN CORPUSCULAR VOLUME 84.9 FL (78-98); MEAN PLATELET VOLUME 7.6 FL (7.4-10.4); MONOCYTES # (AUTO) 1.3 X10'3 (0-0.9); MONOCYTES % (AUTO) 14.7 % (2-12); NEUTROPHILS # (AUTO) 5.6 X10'3 (1.8-7.7); NEUTROPHILS % (AUTO) 62.8 % (42-75); PLATELET COUNT 237 X10'3 (140-440); RED BLOOD COUNT 3.42 X10'6 (4.70-6.10); RED CELL DISTRIBUTION WIDTH 12.6 % (11.5-14.5)
[2024-06-13 07:22] LABS: APTT 23 SECONDS (22-32); INR 1.1 INR; PROTHROMBIN TIME 11.4 SECONDS (9.0-12.0)
[2024-06-13 07:32] LABS: ALANINE AMINOTRANSFERASE 30 U/L (12-78); ALBUMIN 2.1 G/DL (3.4-5.0); ALBUMIN/GLOBULIN RATIO 0.5 (1.1-1.5); ALKALINE PHOSPHATASE 51 IU/L (46-116); ANION GAP 6 (8-16); ASPARTATE AMINO TRANSFERASE 12 U/L (10-37); BILIRUBIN,TOTAL 0.3 MG/DL (0.1-1.0); BLOOD UREA NITROGEN 8 MG/DL (7-18); BUN/CREATININE RATIO 12.5 (10.0-20.0); CALCIUM 8.5 MG/DL (8.5-10.1); CHLORIDE 105 MMOL/L (99-107); CREATININE 0.64 MG/DL (0.60-1.10); GLUCOSE 151 MG/DL (70-104); POTASSIUM 3.9 MMOL/L (3.5-5.1); SODIUM 139 MMOL/L (135-145); TOTAL CARBON DIOXIDE 27.7 MMOL/L (24-32); TOTAL PROTEIN 6.4 G/DL (6.4-8.2); eCRCL 178 ML/MIN; eGFR > 90 ML/MIN
[2024-06-13] MEDS ORDERED: glucagon, human recombinant 1mg kit SUBCUT PRN (10:05)
[2024-06-13] MEDS ORDERED: dextrose 50%-water 50ml dispensing syringe IV PRN ×2 (10:05)
[2024-06-13] MEDS ORDERED: DEXTROSE 15 GM of carb/4 tabs (each vial/BOTTLE has 4 tablets) PO PRN ×2 (10:05)
[2024-06-13] MEDS: INSULIN LISPRO 100 UNIT/ML INSULN.PEN MULTI-DOSE SQ SCH (14:00)
[2024-06-13] MEDS ORDERED: NO HOME MEDS (14:52)
[2024-06-13] MEDS ORDERED: fentaNYL/PF 50MCG/1 ML 2ML syringe ONE (15:19)
[2024-06-13] MEDS ORDERED: midazolam 1 mg/ML 2ml injection ONE (15:19)
[2024-06-13] MEDS: sincalide inj 1.4 MCG in normal saline 100ml IV soln 98.6 ML IV ONE (20:01)
[2024-06-13] MEDS: HYDROmorphone inj. 0.5 MG/0.5 ML DISP.SYRIN IV PRN (20:14)
[2024-06-14] VITALS (12 sets, daily range): BP systolic 82–100; BP diastolic 41–62; PULSE 48–63; RESP 12–18; TEMP 96.9–98.3; O2SAT 95–98
[2024-06-14 06:19] LABS: ALANINE AMINOTRANSFERASE 64 U/L (12-78); ALBUMIN 2.1 G/DL (3.4-5.0); ALBUMIN/GLOBULIN RATIO 0.5 (1.1-1.5); ALKALINE PHOSPHATASE 67 IU/L (46-116); ANION GAP 5 (8-16); ASPARTATE AMINO TRANSFERASE 67 U/L (10-37); BILIRUBIN,TOTAL 0.3 MG/DL (0.1-1.0); BLOOD UREA NITROGEN 9 MG/DL (7-18); BUN/CREATININE RATIO 13.8 (10.0-20.0); CALCIUM 8.3 MG/DL (8.5-10.1); CHLORIDE 105 MMOL/L (99-107); CREATININE 0.65 MG/DL (0.60-1.10); GLUCOSE 112 MG/DL (70-104); POTASSIUM 3.9 MMOL/L (3.5-5.1); SODIUM 138 MMOL/L (135-145); TOTAL CARBON DIOXIDE 28.1 MMOL/L (24-32); TOTAL PROTEIN 6.4 G/DL (6.4-8.2); eCRCL 175 ML/MIN; eGFR > 90 ML/MIN
[2024-06-14] MEDS: acetaminophen 325mg tablet PO PRN (08:22)
[2024-06-14 08:48] LABS: BASOPHILS # (AUTO) 0.1 X10'3 (0-0.2); BASOPHILS % (AUTO) 1.2 % (0-1); EOSINOPHILS # (AUTO) 0.7 X10'3 (0-0.9); EOSINOPHILS % (AUTO) 10.8 % (0-6); HEMATOCRIT 32.1 % (42.0-52.0); HEMOGLOBIN 10.6 g/dl (14.0-17.9); LYMPHOCYTES # (AUTO) 1.4 X10'3 (1.1-4.8); LYMPHOCYTES % (AUTO) 19.8 % (21-51); MEAN CORPUSCULAR VOLUME 85.1 FL (78-98); MEAN PLATELET VOLUME 6.8 FL (7.4-10.4); MONOCYTES # (AUTO) 0.6 X10'3 (0-0.9); MONOCYTES % (AUTO) 9.2 % (2-12); NEUTROPHILS # (AUTO) 4.1 X10'3 (1.8-7.7); PLATELET COUNT 265 X10'3 (140-440); RED BLOOD COUNT 3.78 X10'6 (4.70-6.10); RED CELL DISTRIBUTION WIDTH 13.1 % (11.5-14.5); WHITE BLOOD COUNT 6.9 X10'3 (4.5-11.0)
[2024-06-14] MEDS: dextrose 5%-normal saline 1,000 ML IV SCH (09:16)
[2024-06-14] MEDS: metoclopramide 5 mg/ml inj IV SCH (20:52)
[2024-06-14] MEDS: ZINC/COPPER/MANGANESE/SELENIUM 0.5 ML, chromic chloride inj. 5 MCG in AA 5%/CALCIUM/LYT... IV SCH (23:35)
[2024-06-15] VITALS (10 sets, daily range): BP systolic 88–101; BP diastolic 45–64; PULSE 52–77; RESP 14–20; TEMP 96.8–98; O2SAT 96–99
[2024-06-15] MEDS: normal saline 1000ml 1,000 ML IV SCH (02:43)
[2024-06-15 06:25] LABS: ALANINE AMINOTRANSFERASE 86 U/L (12-78); ALBUMIN/GLOBULIN RATIO 0.5 (1.1-1.5); ALKALINE PHOSPHATASE 77 IU/L (46-116); ANION GAP 0 (8-16); ASPARTATE AMINO TRANSFERASE 78 U/L (10-37); BILIRUBIN,TOTAL 0.2 MG/DL (0.1-1.0); BLOOD UREA NITROGEN 10 MG/DL (7-18); BUN/CREATININE RATIO 16.9 (10.0-20.0); CHLORIDE 106 MMOL/L (99-107); CREATININE 0.59 MG/DL (0.60-1.10); GLUCOSE 112 MG/DL (70-104); MAGNESIUM 2.1 MG/DL (1.5-2.4); POTASSIUM 4.1 MMOL/L (3.5-5.1); SODIUM 137 MMOL/L (135-145); TOTAL PROTEIN 5.9 G/DL (6.4-8.2); TRIGLYCERIDES 34 MG/DL (20-135); eCRCL 193 ML/MIN; eGFR > 90 ML/MIN
[2024-06-15] MEDS: ketorolac trometh 30MG/ML vial 30 MG/ML VIAL IV PRN (20:21)
[2024-06-16 06:00] VITALS: BP 93/53; PULSE 59; RESP 16; TEMP 98.3; O2SAT 97
[2024-06-16 08:00] VITALS: RESP 16; O2SAT 97
[2024-06-16 10:00] VITALS: BP 98/42; PULSE 58; RESP 20; TEMP 97.6; O2SAT 93
[2024-06-16 19:00] VITALS: BP 102/57; PULSE 69; RESP 20; TEMP 97.8; O2SAT 98
[2024-06-16 20:00] VITALS: RESP 20; O2SAT 98
[2024-06-16 22:00] VITALS: BP 93/50; PULSE 60; RESP 12; TEMP 98.4; O2SAT 99
[2024-06-17 06:00] VITALS: BP_SYST 149; BP_SYST 90; BP_DIAS 44; BP_DIAS 68; PULSE 70; PULSE 80; RESP 14; RESP 18; TEMP 97.8; TEMP 98; O2SAT 94; O2SAT 96
[2024-06-17 06:30] LABS: ALANINE AMINOTRANSFERASE 59 U/L (12-78); ALBUMIN 2.4 G/DL (3.4-5.0); ALBUMIN/GLOBULIN RATIO 0.6 (1.1-1.5); ALKALINE PHOSPHATASE 66 IU/L (46-116); ANION GAP 7 (8-16); ASPARTATE AMINO TRANSFERASE 30 U/L (10-37); BILIRUBIN,TOTAL 0.2 MG/DL (0.1-1.0); BLOOD UREA NITROGEN 16 MG/DL (7-18); BUN/CREATININE RATIO 16.3 (10.0-20.0); CALCIUM 8.7 MG/DL (8.5-10.1); CHLORIDE 104 MMOL/L (99-107); CREATININE 0.98 MG/DL (0.60-1.10); GLUCOSE 86 MG/DL (70-104); MAGNESIUM 3.1 MG/DL (1.5-2.4); PHOSPHORUS 4.4 MG/DL (2.3-4.5); POTASSIUM 4.1 MMOL/L (3.5-5.1); SODIUM 139 MMOL/L (135-145); TOTAL CARBON DIOXIDE 28.5 MMOL/L (24-32); TOTAL PROTEIN 6.6 G/DL (6.4-8.2); eCRCL 116 ML/MIN; eGFR > 90 ML/MIN
[2024-06-17 08:00] VITALS: RESP 16; O2SAT 96
[2024-06-17 12:04] LABS: BASOPHILS # (AUTO) 0.1 X10'3 (0-0.2); EOSINOPHILS # (AUTO) 0.5 X10'3 (0-0.9); EOSINOPHILS % (AUTO) 6.3 % (0-6); HEMATOCRIT 34.6 % (42.0-52.0); HEMOGLOBIN 11.6 g/dl (14.0-17.9); LYMPHOCYTES # (AUTO) 1.6 X10'3 (1.1-4.8); MEAN CORPUSCULAR HEMOGLOBIN 28.4 PG (27.0-31.0); MEAN CORPUSCULAR HGB CONC 33.4 g/dL (33.0-36.5); MEAN CORPUSCULAR VOLUME 85.2 FL (78-98); MEAN PLATELET VOLUME 6.5 FL (7.4-10.4); MONOCYTES # (AUTO) 0.5 X10'3 (0-0.9); MONOCYTES % (AUTO) 6.7 % (2-12); NEUTROPHILS # (AUTO) 5.5 X10'3 (1.8-7.7); PLATELET COUNT 316 X10'3 (140-440); RED BLOOD COUNT 4.06 X10'6 (4.70-6.10); RED CELL DISTRIBUTION WIDTH 12.9 % (11.5-14.5); WHITE BLOOD COUNT 8.2 X10'3 (4.5-11.0)
[2024-06-17 18:50] VITALS: BP 96/54; PULSE 65; RESP 16; TEMP 97.7; O2SAT 96
[2024-06-17 22:00] VITALS: BP 97/56; PULSE 60; RESP 18; TEMP 97.8; O2SAT 97
[2024-06-18 06:00] VITALS: BP 111/51; PULSE 66; RESP 18; TEMP 98.2; O2SAT 98
[2024-06-18 06:42] LABS: BASOPHILS # (AUTO) 0.1 X10'3 (0-0.2); BASOPHILS % (AUTO) 0.9 % (0-1); EOSINOPHILS # (AUTO) 0.6 X10'3 (0-0.9); EOSINOPHILS % (AUTO) 7.7 % (0-6); HEMATOCRIT 35.1 % (42.0-52.0); HEMOGLOBIN 11.7 g/dl (14.0-17.9); LYMPHOCYTES % (AUTO) 25.5 % (21-51); MEAN CORPUSCULAR HEMOGLOBIN 28.6 PG (27.0-31.0); MEAN CORPUSCULAR HGB CONC 33.4 g/dL (33.0-36.5); MEAN CORPUSCULAR VOLUME 85.5 FL (78-98); MEAN PLATELET VOLUME 6.6 FL (7.4-10.4); MONOCYTES # (AUTO) 0.6 X10'3 (0-0.9); MONOCYTES % (AUTO) 7.9 % (2-12); NEUTROPHILS # (AUTO) 4.5 X10'3 (1.8-7.7); PLATELET COUNT 314 X10'3 (140-440); RED BLOOD COUNT 4.11 X10'6 (4.70-6.10); RED CELL DISTRIBUTION WIDTH 13.5 % (11.5-14.5); WHITE BLOOD COUNT 7.8 X10'3 (4.5-11.0)
[2024-06-18 06:58] LABS: ALANINE AMINOTRANSFERASE 95 U/L (12-78); ALBUMIN 2.5 G/DL (3.4-5.0); ALBUMIN/GLOBULIN RATIO 0.6 (1.1-1.5); ALKALINE PHOSPHATASE 71 IU/L (46-116); ANION GAP 6 (8-16); ASPARTATE AMINO TRANSFERASE 62 U/L (10-37); BILIRUBIN,TOTAL 0.2 MG/DL (0.1-1.0); BLOOD UREA NITROGEN 14 MG/DL (7-18); BUN/CREATININE RATIO 16.9 (10.0-20.0); CALCIUM 9.1 MG/DL (8.5-10.1); CHLORIDE 103 MMOL/L (99-107); CREATININE 0.83 MG/DL (0.60-1.10); GLUCOSE 83 MG/DL (70-104); MAGNESIUM 2.3 MG/DL (1.5-2.4); PHOSPHORUS 4.8 MG/DL (2.3-4.5); SODIUM 139 MMOL/L (135-145); TOTAL CARBON DIOXIDE 29.6 MMOL/L (24-32); TOTAL PROTEIN 6.9 G/DL (6.4-8.2); eCRCL 137 ML/MIN; eGFR > 90 ML/MIN
[2024-06-18] MEDS ORDERED: CIPR-259 PO (09:39)
[2024-06-18] MEDS ORDERED: ACET-1008 PO (09:40)
[2024-06-18 10:00] VITALS: BP 106/55; PULSE 81; RESP 18; TEMP 98.1; O2SAT 97
== END 2024-06-18 14:19 | disposition home or self-care (01) | DRG 230 ==
LOC: ER 18:39 → ED HOLD 05-23 00:16 → UNDOADMIN 05-23 00:16 → ED HOLD 05-23 00:26 → UNDOADMIN 05-23 00:26 → EDBEDREQ 05-23 01:36 → SUR 3N 05-23 02:09 → ED HOLD 05-23 02:09
PROVIDERS: ADMIT Internal Medicine Sleep Medicine; ATTEND Internal Medicine
PROC: 0D9670Z Drainage of Stomach with Drainage Device, Via Natural or Artificial Opening (ICD-10-PCS; principal; 2024-05-23)
PROC: 0D180Z8 Bypass Small Intestine to Small Intestine, Open Approach (ICD-10-PCS; 2024-05-24)
PROC: 0DB80ZZ Excision of Small Intestine, Open Approach (ICD-10-PCS; 2024-05-24)
PROC: 0DTJ0ZZ Resection of Appendix, Open Approach (ICD-10-PCS; 2024-05-24)
PROC: 02HV33Z Insertion of Infusion Device into Superior Vena Cava, Percutaneous Approach (ICD-10-PCS; 2024-05-30)
PROC: BW211ZZ Computerized Tomography (CT Scan) of Abdomen and Pelvis using Low Osmolar Contrast (ICD-10-PCS; 2024-06-09)
PROC: BW211ZZ Computerized Tomography (CT Scan) of Abdomen and Pelvis using Low Osmolar Contrast (ICD-10-PCS; 2024-06-10)
PROC: BW211ZZ Computerized Tomography (CT Scan) of Abdomen and Pelvis using Low Osmolar Contrast (ICD-10-PCS; 2024-06-11)
PROC: 0F9430Z Drainage of Gallbladder with Drainage Device, Percutaneous Approach (ICD-10-PCS; 2024-06-13)
PROC: BF121ZZ Fluoroscopy of Gallbladder using Low Osmolar Contrast (ICD-10-PCS; 2024-06-13)
PROC: CF141ZZ Planar Nuclear Medicine Imaging of Gallbladder using Technetium 99m (Tc-99m) (ICD-10-PCS; 2024-06-13)
DX: K56.609 Unspecified intestinal obstruction, unspecified as to partial versus complete obstruction (principal); K81.0 Acute cholecystitis; J18.9 Pneumonia, unspecified organism; N39.0 Urinary tract infection, site not specified; Q43.0 Meckel's diverticulum (displaced) (hypertrophic); K56.7 Ileus, unspecified; D72.828 Other elevated white blood cell count
CPT/HCPCS: 36415; 36569; 47490; 71045; 71250; 74018; 74177; 76700; 76942; 78226; 80048; 80053; 81001; 82948; 83036; 83605; 83690; 83735; 84100; 84132; 84134; 84145; 84478; 84560; 85025; 85610; 85651; 85730; 86140; 86677; 86706; 86803; 86885; 86900; 86901; 87040; 87070; 87075; 87077; 87081; 87088; 87186; 87522; 90686; 97116; 97161; 99152; 99153; 99285; A4314; A4421; A4615; A4618; A5200; A6212; A6250; A6258; A6402; A6407; A6449; A7000; A9537; C1729; C1751; C1758; C9290; G0378; J0131; J0694; J0696; J1171; J1650; J1815; J1885; J2060; J2175; J2212; J2250; J2270; J2405; J2470; J2543; J2704; J2765; J3010; J3480; J3490; J7030; J7042; J7060; J7120; J7121; Q9963; Q9967

== ENCOUNTER 2024-07-17 16:46 | Inpatient (IN) | payer MEDICAID ==
[~2024-07-17] VITALS: Ht 175.3 cm; Wt 74.1 kg
[~2024-07-17 16:46] MED LIST: ACET-1008 PO
[2024-07-17] MEDS: metoclopramide 5 mg/ml inj IV ONE (17:15)
[2024-07-17] MEDS: morphine 4 MG/ML inj SYRINge IV ONE (17:15)
[2024-07-17] MEDS ORDERED: D5-1/2NS w/20 mEq potassium per 1000ml IV ONE (17:15)
[2024-07-17 17:53] LABS: BASOPHILS % (AUTO) 0.2 % (0-1); EOSINOPHILS % (AUTO) 0.1 % (0-6); HEMATOCRIT 36.5 % (42.0-52.0); HEMOGLOBIN 12.3 g/dl (14.0-17.9); LYMPHOCYTES # (AUTO) 1.1 X10'3 (1.1-4.8); LYMPHOCYTES % (AUTO) 8.4 % (21-51); MEAN CORPUSCULAR HEMOGLOBIN 28.6 PG (27.0-31.0); MEAN CORPUSCULAR HGB CONC 33.6 g/dL (33.0-36.5); MEAN CORPUSCULAR VOLUME 85.1 FL (78-98); MEAN PLATELET VOLUME 7.4 FL (7.4-10.4); MONOCYTES # (AUTO) 0.4 X10'3 (0-0.9); NEUTROPHILS % (AUTO) 88.3 % (42-75); PLATELET COUNT 197 X10'3 (140-440); RED BLOOD COUNT 4.29 X10'6 (4.70-6.10); RED CELL DISTRIBUTION WIDTH 13.4 % (11.5-14.5); WHITE BLOOD COUNT 13.6 X10'3 (4.5-11.0)
[2024-07-17 18:05] LABS: ALANINE AMINOTRANSFERASE 22 U/L (12-78); ALBUMIN 3.1 G/DL (3.4-5.0); ALBUMIN/GLOBULIN RATIO 0.9 (1.1-1.5); ALKALINE PHOSPHATASE 64 IU/L (46-116); ANION GAP 6 (8-16); ASPARTATE AMINO TRANSFERASE 15 U/L (10-37); BILIRUBIN,DIRECT 0.3 MG/DL (0-0.3); BLOOD UREA NITROGEN 7 MG/DL (7-18); BUN/CREATININE RATIO 8.1 (10.0-20.0); CALCIUM 7.9 MG/DL (8.5-10.1); CHLORIDE 108 MMOL/L (99-107); CREATININE 0.86 MG/DL (0.60-1.10); GLUCOSE 103 MG/DL (70-104); LIPASE 13 U/L (16-77); MAGNESIUM 2.3 MG/DL (1.5-2.4); POTASSIUM 3.8 MMOL/L (3.5-5.1); SODIUM 140 MMOL/L (135-145); TOTAL CARBON DIOXIDE 26.2 MMOL/L (24-32); TOTAL PROTEIN 6.6 G/DL (6.4-8.2); eCRCL 132 ML/MIN; eGFR > 90 ML/MIN
[2024-07-17] MEDS ORDERED: potassium Cl 20 mEq SR tablet PO PRN ×2 (18:10)
[2024-07-17] MEDS ORDERED: acetaminophen 325mg tablet PO PRN (18:10)
[2024-07-17] MEDS ORDERED: HYDROcodone/acetaminophen 5mg/325mg tablet PO PRN (18:10)
[2024-07-17] MEDS ORDERED: HYDROmorphone/PF 0.2 MG/ML SYRINGE IV PRN (18:10)
[2024-07-17] MEDS ORDERED: magnesium sulf-water 4G/100mL 100 ML IV PRN (18:10)
[2024-07-17] MEDS ORDERED: morphine 2 MG/ML inj. syringe IV PRN ×2 (18:10)
[2024-07-17] MEDS ORDERED: HYDROcodone/acetaminophen 10/325mg tab PO PRN (18:10)
[2024-07-17] MEDS ORDERED: HYDROmorphone inj. 0.5 MG/0.5 ML DISP.SYRIN IV PRN (18:10)
[2024-07-17] MEDS ORDERED: magnesium sulf-water 2g/50mL 50 ML IV PRN (18:10)
[2024-07-17] MEDS ORDERED: magnesium Cl slow-release 64mg tablet PO PRN (18:10)
[2024-07-17] MEDS ORDERED: magnesium hydroxide 30ml (MOM) UD suspension PO PRN (18:10)
[2024-07-17 19:08] LABS: APTT 24 SECONDS (22-32); INR 1.1 INR; PROTHROMBIN TIME 11.2 SECONDS (9.0-12.0)
[2024-07-17 19:27] LABS: ALANINE AMINOTRANSFERASE 21 U/L (12-78); ALBUMIN/GLOBULIN RATIO 0.9 (1.1-1.5); ALKALINE PHOSPHATASE 65 IU/L (46-116); ANION GAP 6 (8-16); ASPARTATE AMINO TRANSFERASE 17 U/L (10-37); BILIRUBIN,TOTAL 0.9 MG/DL (0.1-1.0); BLOOD UREA NITROGEN 7 MG/DL (7-18); BUN/CREATININE RATIO 8.4 (10.0-20.0); CALCIUM 7.9 MG/DL (8.5-10.1); CHLORIDE 107 MMOL/L (99-107); CREATININE 0.83 MG/DL (0.60-1.10); GLUCOSE 101 MG/DL (70-104); POTASSIUM 3.7 MMOL/L (3.5-5.1); SODIUM 140 MMOL/L (135-145); TOTAL CARBON DIOXIDE 27.1 MMOL/L (24-32); TOTAL PROTEIN 6.5 G/DL (6.4-8.2); eCRCL 137 ML/MIN; eGFR > 90 ML/MIN
[2024-07-17 19:33] LABS: PHOSPHORUS 3.8 MG/DL (2.3-4.5); PRO BRAIN NATRIURETIC PEPTIDE 107 PG/ML (0-125)
[2024-07-17] MEDS: normal saline 1000ml 1,000 ML IV SCH (19:38)
[2024-07-17] MEDS: docusate sod 100mg capsule PO SCH (20:00)
[2024-07-17] MEDS: K and/or MAG REPLACEMENT MC SCH (20:00)
[2024-07-17] MEDS: heparin, porcine 5000 units/ml vial SQ SCH (21:01)
[2024-07-17 23:20] VITALS: BP 122/70; PULSE 68; RESP 16; TEMP 98.5; O2SAT 100
[2024-07-17] MEDS: ondansetron/PF 4mg/2ml inj IV PRN (23:34)
[2024-07-17] MEDS: diatr meglu/diatrizoate 30ml oral sol.-(3 dose) bottle PO SCH (23:56)
[2024-07-18] VITALS (7 sets, daily range): BP systolic 108–118; BP diastolic 57–70; PULSE 56–107; RESP 12–20; TEMP 97.9–99; O2SAT 92–100
[2024-07-18] MEDS: metoclopramide 5 mg/ml inj IV PRN ×2 (01:09→10:17)
[2024-07-18 04:40] LABS: BASOPHILS % (AUTO) 0.3 % (0-1); EOSINOPHILS % (AUTO) 0.2 % (0-6); HEMATOCRIT 36.8 % (42.0-52.0); HEMOGLOBIN 12.4 g/dl (14.0-17.9); LYMPHOCYTES # (AUTO) 1.1 X10'3 (1.1-4.8); LYMPHOCYTES % (AUTO) 11.8 % (21-51); MEAN CORPUSCULAR HEMOGLOBIN 28.5 PG (27.0-31.0); MEAN CORPUSCULAR HGB CONC 33.7 g/dL (33.0-36.5); MEAN CORPUSCULAR VOLUME 84.5 FL (78-98); MEAN PLATELET VOLUME 7.1 FL (7.4-10.4); MONOCYTES # (AUTO) 0.4 X10'3 (0-0.9); NEUTROPHILS # (AUTO) 7.6 X10'3 (1.8-7.7); NEUTROPHILS % (AUTO) 83.7 % (42-75); PLATELET COUNT 190 X10'3 (140-440); RED BLOOD COUNT 4.35 X10'6 (4.70-6.10); RED CELL DISTRIBUTION WIDTH 13.2 % (11.5-14.5); WHITE BLOOD COUNT 9.1 X10'3 (4.5-11.0)
[2024-07-18 04:59] LABS: ALANINE AMINOTRANSFERASE 21 U/L (12-78); ALBUMIN 3.1 G/DL (3.4-5.0); ALBUMIN/GLOBULIN RATIO 0.9 (1.1-1.5); ALKALINE PHOSPHATASE 61 IU/L (46-116); ANION GAP 9 (8-16); ASPARTATE AMINO TRANSFERASE 14 U/L (10-37); BILIRUBIN,TOTAL 0.8 MG/DL (0.1-1.0); BLOOD UREA NITROGEN 6 MG/DL (7-18); BUN/CREATININE RATIO 7.9 (10.0-20.0); CALCIUM 8.3 MG/DL (8.5-10.1); CHLORIDE 107 MMOL/L (99-107); CREATININE 0.76 MG/DL (0.60-1.10); GLUCOSE 91 MG/DL (70-104); POTASSIUM 3.6 MMOL/L (3.5-5.1); SODIUM 140 MMOL/L (135-145); TOTAL CARBON DIOXIDE 23.6 MMOL/L (24-32); TOTAL PROTEIN 6.6 G/DL (6.4-8.2); eCRCL 150 ML/MIN; eGFR > 90 ML/MIN
[2024-07-19] VITALS (7 sets, daily range): BP systolic 94–107; BP diastolic 53–64; PULSE 54–77; RESP 12–18; TEMP 97.5–98.2; O2SAT 95–99
[2024-07-19 04:15] LABS: BASOPHILS % (AUTO) 0.7 % (0-1); EOSINOPHILS # (AUTO) 0.1 X10'3 (0-0.9); EOSINOPHILS % (AUTO) 1.4 % (0-6); HEMATOCRIT 33.8 % (42.0-52.0); HEMOGLOBIN 11.6 g/dl (14.0-17.9); LYMPHOCYTES # (AUTO) 1.7 X10'3 (1.1-4.8); LYMPHOCYTES % (AUTO) 25.9 % (21-51); MEAN CORPUSCULAR HEMOGLOBIN 29.2 PG (27.0-31.0); MEAN CORPUSCULAR HGB CONC 34.3 g/dL (33.0-36.5); MEAN PLATELET VOLUME 7.1 FL (7.4-10.4); MONOCYTES # (AUTO) 0.5 X10'3 (0-0.9); MONOCYTES % (AUTO) 7.8 % (2-12); NEUTROPHILS # (AUTO) 4.3 X10'3 (1.8-7.7); NEUTROPHILS % (AUTO) 64.2 % (42-75); PLATELET COUNT 159 X10'3 (140-440); RED BLOOD COUNT 3.98 X10'6 (4.70-6.10); RED CELL DISTRIBUTION WIDTH 13.1 % (11.5-14.5); WHITE BLOOD COUNT 6.7 X10'3 (4.5-11.0)
[2024-07-19 04:30] LABS: ALANINE AMINOTRANSFERASE 16 U/L (12-78); ALBUMIN 2.9 G/DL (3.4-5.0); ALBUMIN/GLOBULIN RATIO 0.9 (1.1-1.5); ALKALINE PHOSPHATASE 51 IU/L (46-116); ANION GAP 12 (8-16); ASPARTATE AMINO TRANSFERASE 12 U/L (10-37); BILIRUBIN,TOTAL 0.6 MG/DL (0.1-1.0); BLOOD UREA NITROGEN 3 MG/DL (7-18); BUN/CREATININE RATIO 4.2 (10.0-20.0); CALCIUM 8.1 MG/DL (8.5-10.1); CHLORIDE 110 MMOL/L (99-107); CREATININE 0.71 MG/DL (0.60-1.10); GLUCOSE 66 MG/DL (70-104); MAGNESIUM 1.8 MG/DL (1.5-2.4); POTASSIUM 3.5 MMOL/L (3.5-5.1); SODIUM 146 MMOL/L (135-145); TOTAL CARBON DIOXIDE 23.9 MMOL/L (24-32); TOTAL PROTEIN 6.1 G/DL (6.4-8.2); eCRCL 160 ML/MIN; eGFR > 90 ML/MIN
[2024-07-19] MEDS: dextrose 50%-water 50ml dispensing syringe IV ONE ×2 (04:41→09:38)
[2024-07-19] MEDS: dextrose 5%-1/2 normal saline 1,000 ML IV SCH (10:06)
[2024-07-19] MEDS: diatr meglu/diatrizoate 30ml oral sol.-(3 dose) bottle PO SCH (10:15)
[2024-07-19] MEDS ORDERED: diatr meglu/diatrizoate 30ml oral sol.-(3 dose) bottle PO SCH (12:00)
[2024-07-19] MEDS ORDERED: iohexol 300mg/ml 100ml inj. ONE (16:16)
[2024-07-19] MEDS ORDERED: LIDOcaine 2% Viscous 15ml cup MM PRN (17:15)
[2024-07-19] MEDS ORDERED: Chloraseptic (Phenol) Spray 177ml MM PRN (17:15)
[2024-07-20] MEDS: metoclopramide 5 mg/ml inj IV SCH (03:36)
[2024-07-20 04:50] LABS: BASOPHILS # (AUTO) 0.1 X10'3 (0-0.2); BASOPHILS % (AUTO) 1.1 % (0-1); EOSINOPHILS # (AUTO) 0.3 X10'3 (0-0.9); EOSINOPHILS % (AUTO) 4.9 % (0-6); HEMATOCRIT 33.8 % (42.0-52.0); HEMOGLOBIN 12.1 g/dl (14.0-17.9); LYMPHOCYTES # (AUTO) 1.4 X10'3 (1.1-4.8); LYMPHOCYTES % (AUTO) 24.4 % (21-51); MEAN CORPUSCULAR HEMOGLOBIN 29.7 PG (27.0-31.0); MEAN CORPUSCULAR HGB CONC 35.8 g/dL (33.0-36.5); MEAN PLATELET VOLUME 6.9 FL (7.4-10.4); MONOCYTES # (AUTO) 0.5 X10'3 (0-0.9); MONOCYTES % (AUTO) 9.6 % (2-12); NEUTROPHILS # (AUTO) 3.4 X10'3 (1.8-7.7); PLATELET COUNT 166 X10'3 (140-440); RED BLOOD COUNT 4.07 X10'6 (4.70-6.10); RED CELL DISTRIBUTION WIDTH 13.2 % (11.5-14.5); WHITE BLOOD COUNT 5.6 X10'3 (4.5-11.0)
[2024-07-20 05:01] LABS: ALANINE AMINOTRANSFERASE 77 U/L (12-78); ALBUMIN 2.9 G/DL (3.4-5.0); ALBUMIN/GLOBULIN RATIO 0.9 (1.1-1.5); ALKALINE PHOSPHATASE 52 IU/L (46-116); ANION GAP 6 (8-16); ASPARTATE AMINO TRANSFERASE 91 U/L (10-37); BILIRUBIN,TOTAL 0.9 MG/DL (0.1-1.0); BLOOD UREA NITROGEN 1 MG/DL (7-18); BUN/CREATININE RATIO 1.5 (10.0-20.0); CALCIUM 8.3 MG/DL (8.5-10.1); CHLORIDE 107 MMOL/L (99-107); CREATININE 0.67 MG/DL (0.60-1.10); GLUCOSE 106 MG/DL (70-104); MAGNESIUM 1.5 MG/DL (1.5-2.4); POTASSIUM 3.1 MMOL/L (3.5-5.1); SODIUM 143 MMOL/L (135-145); TOTAL CARBON DIOXIDE 30.3 MMOL/L (24-32); TOTAL PROTEIN 6.2 G/DL (6.4-8.2); eCRCL 170 ML/MIN; eGFR > 90 ML/MIN
[2024-07-20 06:00] VITALS: BP 104/59; PULSE 54; RESP 18; TEMP 98.3; O2SAT 96
[2024-07-20 09:00] VITALS: RESP 14; O2SAT 97
[2024-07-20 10:30] VITALS: BP 102/62; PULSE 64; RESP 14; TEMP 98.2; O2SAT 97
[2024-07-20] MEDS: potassium Cl 40MEQ/1/2NS 520ml 520 ML IV PRN (10:32)
[2024-07-20] MEDS: mag hydrox/Alum hydrox/simeth 30ml oral suspension PO PRN (13:08)
[2024-07-20 18:00] VITALS: BP 116/62; PULSE 57; RESP 12; TEMP 97.5; O2SAT 97
[2024-07-20 20:00] VITALS: RESP 12; O2SAT 99
[2024-07-20 22:00] VITALS: BP 105/63; PULSE 56; RESP 16; TEMP 97.8; O2SAT 95
[2024-07-21 06:00] VITALS: BP 108/60; PULSE 67; RESP 18; TEMP 98; O2SAT 94
[2024-07-21 06:38] LABS: BASOPHILS % (AUTO) 0.9 % (0-1); EOSINOPHILS # (AUTO) 0.3 X10'3 (0-0.9); EOSINOPHILS % (AUTO) 5.4 % (0-6); HEMOGLOBIN 12.9 g/dl (14.0-17.9); LYMPHOCYTES # (AUTO) 1.5 X10'3 (1.1-4.8); LYMPHOCYTES % (AUTO) 29.1 % (21-51); MEAN CORPUSCULAR HGB CONC 34.9 g/dL (33.0-36.5); MEAN CORPUSCULAR VOLUME 83.2 FL (78-98); MEAN PLATELET VOLUME 7.8 FL (7.4-10.4); MONOCYTES # (AUTO) 0.5 X10'3 (0-0.9); MONOCYTES % (AUTO) 9.3 % (2-12); NEUTROPHILS # (AUTO) 2.8 X10'3 (1.8-7.7); NEUTROPHILS % (AUTO) 55.3 % (42-75); PLATELET COUNT 205 X10'3 (140-440); RED BLOOD COUNT 4.45 X10'6 (4.70-6.10); RED CELL DISTRIBUTION WIDTH 12.9 % (11.5-14.5)
[2024-07-21 06:48] LABS: ALANINE AMINOTRANSFERASE 187 U/L (12-78); ALBUMIN/GLOBULIN RATIO 0.8 (1.1-1.5); ALKALINE PHOSPHATASE 63 IU/L (46-116); ANION GAP 8 (8-16); ASPARTATE AMINO TRANSFERASE 167 U/L (10-37); BILIRUBIN,TOTAL 1.2 MG/DL (0.1-1.0); BLOOD UREA NITROGEN 0 MG/DL (7-18); CALCIUM 8.7 MG/DL (8.5-10.1); CHLORIDE 107 MMOL/L (99-107); GLUCOSE 108 MG/DL (70-104); POTASSIUM 3.4 MMOL/L (3.5-5.1); SODIUM 141 MMOL/L (135-145); TOTAL PROTEIN 6.6 G/DL (6.4-8.2); eCRCL 190 ML/MIN; eGFR > 90 ML/MIN
[2024-07-21 07:25] VITALS: RESP 16
[2024-07-21] MEDS ORDERED: potassium Cl 20 mEq SR tablet PO PRN (09:20)
[2024-07-21] MEDS ORDERED: magnesium Cl slow-release 64mg tablet PO PRN (09:20)
[2024-07-21] MEDS ORDERED: magnesium sulf-water 2g/50mL 50 ML IV PRN (09:20)
[2024-07-21] MEDS ORDERED: potassium Cl 40MEQ/1/2NS 520ml 520 ML IV PRN (09:20)
[2024-07-21] MEDS ORDERED: magnesium sulf-water 4G/100mL 100 ML IV PRN (09:20)
[2024-07-21 10:00] VITALS: BP 103/60; PULSE 50; RESP 20; TEMP 98.1; O2SAT 97
[2024-07-21] MEDS: potassium Cl 20 mEq SR tablet PO PRN (10:49)
[2024-07-21] MEDS ORDERED: metoclopramide 5 mg/ml inj IV PRN (14:45)
[2024-07-21 18:00] VITALS: BP 102/62; PULSE 50; RESP 20; TEMP 97.8; O2SAT 96
[2024-07-21] MEDS: K and/or MAG REPLACEMENT MC SCH (19:12)
[2024-07-21 20:00] VITALS: RESP 20; O2SAT 96
[2024-07-21 22:00] VITALS: BP 90/55; PULSE 52; RESP 16; TEMP 98.3; O2SAT 95
[2024-07-22 06:00] VITALS: BP 98/53; PULSE 60; RESP 14; TEMP 99; O2SAT 95
[2024-07-22 06:26] LABS: ALANINE AMINOTRANSFERASE 171 U/L (12-78); ALBUMIN 2.9 G/DL (3.4-5.0); ALBUMIN/GLOBULIN RATIO 0.8 (1.1-1.5); ALKALINE PHOSPHATASE 70 IU/L (46-116); ANION GAP 7 (8-16); BILIRUBIN,TOTAL 0.7 MG/DL (0.1-1.0); BLOOD UREA NITROGEN 1 MG/DL (7-18); BUN/CREATININE RATIO 1.8 (10.0-20.0); CALCIUM 8.9 MG/DL (8.5-10.1); CHLORIDE 107 MMOL/L (99-107); CREATININE 0.55 MG/DL (0.60-1.10); GLUCOSE 100 MG/DL (70-104); SODIUM 138 MMOL/L (135-145); TOTAL CARBON DIOXIDE 24.1 MMOL/L (24-32); TOTAL PROTEIN 6.5 G/DL (6.4-8.2); eCRCL 207 ML/MIN; eGFR > 90 ML/MIN
[2024-07-22 06:42] LABS: ASPARTATE AMINO TRANSFERASE 115 U/L (10-37); POTASSIUM 4.4 MMOL/L (3.5-5.1)
[2024-07-22 08:04] LABS: BASOPHILS # (AUTO) 0.1 X10'3 (0-0.2); MEAN CORPUSCULAR HGB CONC 34.2 g/dL (33.0-36.5); MONOCYTES # (AUTO) 0.4 X10'3 (0-0.9); NEUTROPHILS # (AUTO) 2.6 X10'3 (1.8-7.7); RED CELL DISTRIBUTION WIDTH 13.1 % (11.5-14.5)
[2024-07-22 08:08] LABS: BASOPHILS % (AUTO) 1.1 % (0-1); EOSINOPHILS # (AUTO) 0.4 X10'3 (0-0.9); EOSINOPHILS % (AUTO) 8.2 % (0-6); HEMATOCRIT 39.1 % (42.0-52.0); HEMOGLOBIN 13.4 g/dl (14.0-17.9); LYMPHOCYTES # (AUTO) 1.6 X10'3 (1.1-4.8); LYMPHOCYTES % (AUTO) 30.9 % (21-51); MEAN CORPUSCULAR HEMOGLOBIN 28.9 PG (27.0-31.0); MEAN CORPUSCULAR VOLUME 84.5 FL (78-98); MEAN PLATELET VOLUME 8.1 FL (7.4-10.4); MONOCYTES % (AUTO) 8.5 % (2-12); NEUTROPHILS % (AUTO) 51.3 % (42-75); PLATELET COUNT 192 X10'3 (140-440); RED BLOOD COUNT 4.63 X10'6 (4.70-6.10)
[2024-07-22 08:45] VITALS: RESP 18; O2SAT 97
[2024-07-22 10:00] VITALS: BP 103/79; PULSE 86; RESP 16; TEMP 97.8; O2SAT 98
[2024-07-22] MEDS ORDERED: METO10TA3 PO (10:19)
== END 2024-07-22 13:36 | disposition home or self-care (01) | DRG 247 ==
LOC: ER 16:47 → ED HOLD 18:19 → SUR 3N 23:17
PROVIDERS: ADMIT Internal Medicine; ATTEND Internal Medicine
PROC: 0D9670Z Drainage of Stomach with Drainage Device, Via Natural or Artificial Opening (ICD-10-PCS; principal; 2024-07-17)
PROC: 0F9430Z Drainage of Gallbladder with Drainage Device, Percutaneous Approach (ICD-10-PCS; 2024-07-17)
DX: K56.690 Other partial intestinal obstruction (principal); R18.8 Other ascites; E16.1 Other hypoglycemia; E83.42 Hypomagnesemia; E87.6 Hypokalemia; Z90.49 Acquired absence of other specified parts of digestive tract
CPT/HCPCS: 36415; 74176; 74177; 80048; 80053; 80076; 82948; 83605; 83690; 83735; 83880; 84100; 85025; 85610; 85730; 87081; 99291; A4421; A6258; G0378; J1644; J2405; J2765; J3480; J3490; J7030; J7042; Q9963; Q9967

== ENCOUNTER 2024-09-15 13:08 | Observation (INO) | payer MEDICAID ==
[2024-09-15] VITALS (18 sets, daily range): BP systolic 103–167; BP diastolic 64–94; PULSE 51–116; RESP 11–18; TEMP 98.3–98.6; O2SAT 91–100
[~2024-09-15] VITALS: Ht 175.3 cm; Wt 68.0 kg
[2024-09-15] MEDS: ceFOXitin sod/dextrose 2g/50ml 50 ML IV ONE (05:30)
[~2024-09-15 13:08] MED LIST changes: -ACET-1008 PO; +NO HOME MEDS; +ceFAZolin 2gm in dextrose, iso 50 ML IV ONE
[2024-09-15] MEDS: famotidine 20mg tablet PO ONE (14:05)
[2024-09-15] MEDS: ringers solution, lacted 1,000 ML IV SCH ×2 (14:11→20:10)
[2024-09-15] MEDS: INDOCYANINE GREEN 25 MG/10 ML VIAL IV ONE (14:11)
[2024-09-15 14:35] LABS: ISTAT ANION GAP 11 (8-12); ISTAT BUN 16 mg/dL (7-18); ISTAT CL 104 mmol/L (99-107); ISTAT CREATININE 0.8 mg/dL (0.8-1.3); ISTAT GLUCOSE 89 mg/dL (70-104); ISTAT HGB 15.3 g/dl (14.0-17.9); ISTAT Hct 45 %PCV (42-52); ISTAT IONIZED CALCIUM 1.31 mmol/L (1.03-1.32); ISTAT K 4.5 mmol/L (3.5-5.1); ISTAT NA 142 mmol/L (135-145); ISTAT TOTAL CO2 27 mmol/L (24-32); ISTAT eGFR > 90 ML/MIN
[2024-09-15 14:36] LABS: BASOPHILS # (AUTO) 0.1 X10'3 (0-0.2); EOSINOPHILS # (AUTO) 0.3 X10'3 (0-0.9); EOSINOPHILS % (AUTO) 4.7 % (0-6); LYMPHOCYTES # (AUTO) 2.1 X10'3 (1.1-4.8); LYMPHOCYTES % (AUTO) 32.5 % (21-51); MEAN CORPUSCULAR HEMOGLOBIN 28.5 PG (27.0-31.0); MEAN CORPUSCULAR HGB CONC 34.2 g/dL (33.0-36.5); MEAN CORPUSCULAR VOLUME 83.4 FL (78-98); MEAN PLATELET VOLUME 7.3 FL (7.4-10.4); MONOCYTES # (AUTO) 0.4 X10'3 (0-0.9); MONOCYTES % (AUTO) 6.5 % (2-12); NEUTROPHILS # (AUTO) 3.6 X10'3 (1.8-7.7); NEUTROPHILS % (AUTO) 55.3 % (42-75); PRE OP HEMATOCRIT 42.8 % (42.0-52.0); PRE OP HEMOGLOBIN 14.6 g/dL (14.0-17.9); PRE OP PLATELET COUNT 205 X10'3 (140-440); PRE OP WHITE BLOOD COUNT 6.5 10'3 (4.8-10.8); RED BLOOD COUNT 5.13 X10'6 (4.70-6.10); RED CELL DISTRIBUTION WIDTH 13.3 % (11.5-14.5)
[2024-09-15 14:48] LABS: PRE OP PARTIAL THROMB. TIME 25 SECONDS (22-32); PROTHROMBIN TIME 10.9 SECONDS (9.0-12.0)
[2024-09-15 14:50] LABS: ALANINE AMINOTRANSFERASE 20 U/L (12-78); ALBUMIN 3.9 G/DL (3.4-5.0); ALBUMIN/GLOBULIN RATIO 0.9 (1.1-1.5); ALKALINE PHOSPHATASE 72 IU/L (46-116); ANION GAP 8 (8-16); ASPARTATE AMINO TRANSFERASE 15 U/L (10-37); BILIRUBIN,TOTAL 0.5 MG/DL (0.1-1.0); BLOOD UREA NITROGEN 13 MG/DL (7-18); BUN/CREATININE RATIO 15.9 (10.0-20.0); CALCIUM 9.7 MG/DL (8.5-10.1); CHLORIDE 105 MMOL/L (99-107); CREATININE 0.82 MG/DL (0.60-1.10); GLUCOSE 90 MG/DL (70-104); POTASSIUM 4.2 MMOL/L (3.5-5.1); SODIUM 140 MMOL/L (135-145); TOTAL PROTEIN 8.2 G/DL (6.4-8.2); eCRCL 139 ML/MIN; eGFR > 90 ML/MIN
[2024-09-15 15:34] LABS: BILIRUBIN,URINE NEGATIVE (Neg); CLARITY,URINE SLIGHTLY CLOUDY (Clear); COLOR,URINE YELLOW (Yellow); GLUCOSE, URINE NEGATIVE (Neg); KETONES,URINE NEGATIVE (Neg); LEUKOCYTE ESTERASE ,URINE NEGATIVE (Neg); NITRITES, URINE NEGATIVE (Neg); OCCULT BLOOD,URINE NEGATIVE (Neg); PROTEIN,URINE TRACE mg/dl (Neg); UROBILINOGEN,URINE 0.2 E.U/dL (0.2-1.0)
[2024-09-15 15:36] LABS: UA COLLECTION TYPE NON-SPECIFIED
[2024-09-15 15:42] LABS: BACTERIA,URINE FEW /HPF (Neg); CAL OXALATE CRYSTALS FEW /HPF (NEGATIVE); MUCUS STRANDS MANY /LPF (Neg); RBC,URINE NONE SEEN /HPF (0-2); SPERM FEW /HPF (NEGATIVE); SQUAMOUS EPITHELIAL CELL,UR FEW /LPF (FEW)
[2024-09-15] MEDS ORDERED: BUPIVAcaine 2.5mg/ml inj 50ml vial (contains preservative) ONE (18:20)
[2024-09-15] MEDS ORDERED: sevoflurane 250ml liquid IH ONE (18:21)
[2024-09-15] MEDS ORDERED: midazolam 1 mg/ML 2ml injection ONE (18:25)
[2024-09-15] MEDS ORDERED: fentaNYL/PF 50MCG/1 ML 2ML syringe ONE ×2 (18:25→19:46)
[2024-09-15] MEDS ORDERED: rocuronium 10mg/ml inj IV ONE ×2 (18:26→19:13)
[2024-09-15] MEDS ORDERED: propofol inj 20 ML IV ONE (18:26)
[2024-09-15] MEDS ORDERED: ondansetron/PF 4mg/2ml inj ONE (18:26)
[2024-09-15] MEDS ORDERED: glycopyrrolate 0.2mg/ml inj ONE (18:26)
[2024-09-15] MEDS ORDERED: acetaminophen 1,000mg/100ml IV 100 ML IV ONE (18:27)
[2024-09-15] MEDS ORDERED: LIDOcaine 2% (20mg/ml) 5ml vial ONE (18:27)
[2024-09-15] MEDS ORDERED: INDOCYANINE GREEN 25 MG/10 ML VIAL IV ONE (18:28)
[2024-09-15] MEDS ORDERED: hydrALAZINE 20mg/ml inj. IV PRN (20:10)
[2024-09-15] MEDS ORDERED: ondansetron/PF 4mg/2ml inj IV PRN ×2 (20:10→20:20)
[2024-09-15] MEDS ORDERED: morphine 4 MG/ML inj SYRINge IV PRN (20:10)
[2024-09-15] MEDS ORDERED: fentaNYL/PF 50MCG/1 ML 2ML syringe IV PRN ×2 (20:10)
[2024-09-15] MEDS ORDERED: labetalol 20mg/4ml (5mg/ml) syringe IV PRN (20:10)
[2024-09-15] MEDS ORDERED: HYDROmorphone inj. 0.5 MG/0.5 ML DISP.SYRIN IM STA (20:14)
[2024-09-15] MEDS: morphine 2 MG/ML inj. syringe IV PRN (20:16)
[2024-09-15] MEDS: ketorolac trometh 30MG/ML vial 30 MG/ML VIAL IV STA (20:19)
[2024-09-15] MEDS ORDERED: HYDROmorphone inj. 0.5 MG/0.5 ML DISP.SYRIN SQ ONE (20:20)
[2024-09-15] MEDS: potassium CL 20mEq in D5-1/2NS 1,000 ML IV SCH (20:20)
[2024-09-15] MEDS ORDERED: naloxone 0.4 mg/ml inj IV PRN (20:20)
[2024-09-15] MEDS ORDERED: HYDROmorphone 1 mg/ml syringe IV ONE (20:40)
[2024-09-15] MEDS: HYDROmorphone inj. 0.5 MG/0.5 ML DISP.SYRIN IV STA ×2 (20:46→21:36)
[2024-09-15] MEDS ORDERED: HYDROmorphone inj. 0.5 MG/0.5 ML DISP.SYRIN IV PRN (21:05)
[2024-09-16] VITALS (9 sets, daily range): BP systolic 101–118; BP diastolic 53–73; PULSE 55–73; RESP 14–16; TEMP 97.5–98.6; O2SAT 92–100
[2024-09-16] MEDS: ceFOXitin 1 GM/D5W 50mL IVPB 50 ML IV SCH (01:01)
[2024-09-16] MEDS: ketorolac trometh 30MG/ML vial 30 MG/ML VIAL IV SCH (02:00)
[2024-09-17 05:00] VITALS: BP 95/55; PULSE 72; RESP 18; TEMP 98.9; O2SAT 98
[2024-09-17 08:15] VITALS: RESP 18; O2SAT 98
[2024-09-17 10:00] VITALS: BP 102/60; PULSE 79; RESP 16; TEMP 97.9; O2SAT 96
[2024-09-17] MEDS: magnesium hydroxide 30ml (MOM) UD suspension PO SCH (11:53)
[2024-09-17 18:00] VITALS: BP 102/61; PULSE 80; RESP 16; TEMP 97.8; O2SAT 96
[2024-09-17 22:00] VITALS: BP 95/48; PULSE 68; RESP 12; TEMP 98.5; O2SAT 95
[2024-09-18 06:00] VITALS: BP 105/65; PULSE 52; RESP 13; TEMP 97.7; O2SAT 98
[2024-09-18 10:00] VITALS: BP 99/57; PULSE 61; RESP 16; TEMP 98.6; O2SAT 96
== END 2024-09-18 16:00 | disposition home or self-care (01) ==
LOC: PAS 13:08 → PAS IN 20:22 → SUR 3N 21:55
PROVIDERS: ADMIT Surgery; ATTEND Surgery
DX: K80.00 Calculus of gallbladder with acute cholecystitis without obstruction (principal); R79.1 Abnormal coagulation profile; Z79.899 Other long term (current) drug therapy; Z98.890 Other specified postprocedural states
CPT/HCPCS: 36415; 47562; 80047; 80053; 81001; 85025; 85610; 85730; 87081; 93005; 96365; 96366; 96375; 96376; A6258; G0378; J0131; J0694; J1100; J1171; J1885; J2003; J2250; J2270; J2405; J2704; J2710; J3010; J3480; J3490; J7120; S2900; A4215; A4618; A6402; A7000; J0690

== ENCOUNTER 2025-07-31 18:51 | Emergency (ER) | payer MEDICAID ==
[~2025-07-31] VITALS: Ht 175.3 cm; Wt 80.3 kg
[~2025-07-31 18:51] MED LIST changes: -ceFAZolin 2gm in dextrose, iso 50 ML IV ONE
[2025-07-31 19:28] LABS: INFLUENZA TYPE A ANTIGEN RAPID NEGATIVE (Negative); INFLUENZA TYPE B ANTIGEN RAPID NEGATIVE (Negative)
--- NOTE | 2025-07-31 22:14 | Physician Documentation ---
History of Present Illness ~ Chief Complaint: Fever Stated Complaint: FEVER Time Seen by MD: 21:02 Primary Medical Doctor: aidee HPI 24-year-old male otherwise healthy presents to the emergency department with a 2-3 day history of non cyclic fevers without associated myalgias, rigors nausea or vomiting or diarrhea. Known ill contact. No recent travels. No complaint of respiratory distress or pharyngitis. Medication Reconciliation Allergies: Coded Allergies: No Known Allergies (Unverified , 07/17/24) Miscellaneous Medications Home Med List (No Home Medications), (Reported) Past Medical History Past Medical History: No Pertinent History Past Surgical History: appendectomy, other Alcohol Use: None Drug Use: none Lives with: Family Lives In: Home Occupation: student, child Review of Systems All Other Systems at this time: Reviewed and Negative ROS See HPI Physical Exam Vital Signs: RN Vital Signs have been reviewed: Yes, Temperature: 100.3, Source: Oral, Heart Rate: 102, Respiratory Rate: 16, BP: 112/72, Pulse Oximetry: 97, Weight: 80.300 Oxygen Flow Rate: 0 General Appearance: alert, WD/WN, no apparent distress Eyes: normal inspection, EOMI, PERRL Ears: auricle normal, canal normal Nose: normal inspection Oropharynx: normal inspection Neck: non-tender Respiratory: lungs clear, normal breath sounds Chest: no accessory muscle use Cardiovascular: normal peripheral pulses, tachycardia Extremities: normal range of motion Back: normal inspection Skin: normal color Neurologic: oriented x4 Psychiatric: normal mood/affect Lymphatic: no adenopathy Progress Results/Orders Results/Orders Vital Signs 07/31/25 19:03 Temp 100.3 Pulse 102 Resp 16 B/P (MAP) 112/72 Pulse Ox 97 O2 Flow Rate 0 Laboratory Tests Test 07/31/25 19:00 Influenza Type A Antigen Negative Influenza Type B Antigen Negative SARS-CoV-2 Antigen (Rapid) Negative Medical Decision Making Additional information obtaine: N/A Findings Examination and history consistent with viral syndrome. Influenza a and influenza B and COVID screening all reassuring for negative. Examination benign & presently do not suspect serious bacterial illness such as meningitis or pneumonia. Vital signs reassuring, mild tachycardic consistent with temp of 100.3 and patient is discharged to continue with ibuprofen and Tylenol and seek follow up with the primary care physician and to return to the emergency department if symptoms worse. Nontoxic at discharge. Differential Dx:Considerations: Include: Electrolyte imbalance, Influenza, Meningitis, Pneumonia, Pneumonitis, Pyelonephritis, Sepsis, UTI, Viral Syndrome Departure Disposition: HOME / SELF CARE / HOMELESS Impression: Primary Impression: Fever Qualified Codes: R50.9 - Fever, unspecified Condition: Stable Discharge Instructions: Viral Illness Additional Instructions: Please continue with Tylenol and ibuprofen for fever and/or body aches. Your COVID screening influenza screening today is reassuring and negative. Please make follow up appointment with the primary care physician. You have been provided a work note/school note for today. Please return to the emergency department as needed. Thank you for visiting [facility] Referrals: NO PRIMARY CARE PROVIDER (PCP) Education Educated: Patient Educated regarding: diagnosis, treatment, prognosis Signature Scribe Signature: . Attestation: . CHRISSY CHEN PAC Jul 31, 2025 22:13
[2025-07-31 22:17] VITALS: BP 113/71; PULSE 99; RESP 18; TEMP 98.6; O2SAT 99
== END 2025-07-31 22:18 | disposition home or self-care (01) ==
LOC: ER 18:52
DX: R50.9 Fever, unspecified (principal); Z90.49 Acquired absence of other specified parts of digestive tract; Z98.890 Other specified postprocedural states; Z20.822 Contact with and (suspected) exposure to COVID-19
CPT/HCPCS: 36415; 87804; 87811; 99283